=== PATIENT | female | born 1990 | race Caucasian/White ===

== ENCOUNTER 2021-05-14 07:17 | Emergency (ER) | payer OTHER ==
--- OUTSIDE RECORDS SUMMARY | 2021-05-14 07:22 | XMS REPORT | Continuity of Care Document ---
:1990 Author Organization [facility] t Address [address] [place] [address] Care Team Providers Name Role Phone Chan Attending Clinician Unavailable MALINA GARCIA Attending Clinician Unavailable Diane_Randall Attending Clinician Unavailable Meenu Miranda Attending Clinician Unavailable ELBA Attending Clinician Unavailable Duncan_Mil Attending Clinician Unavailable Cipriano_Brant Attending Clinician Unavailable MALINA GARCIA Admitting Clinician Unavailable Diane_Papboy Admitting Clinician Unavailable Physician, Primary or Family Admitting Clinician Unavailabl e ELBA Admitting Clinician Unavailable Zunnickia_F Admitting Clinician Unavailable Cipriano_Brant Admitting Clinician Unavailable Payers Payer Name Policy Type Policy Number Effective Date Expiration Date S ource [place] [id number] [facility] [id number] [place] [id number] HEALTH PROGRAM ([place]) [place] [id number] [place]OMEN [place] 3D MODELER [id number] PROGRAM [place] [id number] [place]) Problems Condition Condition Condition Status Onset Resolution Last Treating Co mments Source Name Details Category Date Date Treatment Clinician Date Acute Acute Problem Active [facility] pelvic Pelvic 7-29 da pain Pain 00:00: Medical 00 Group Myopia Myopia Problem Active [facility] 3-02 da 00:[facility] Regular Regular Problem Active [facility] astigmatis Astigmatis 3-02 da m m 00:00: [facility] Eye Eye Problem Active [facility] disorder Disorder 3-02 da screening 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: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 Outreac h Program Gynecologi Gynecologi Problem Active 2018-03 M [facility] c c 0-21 da examinatio Examinatio 00:00: Me dical n n 00 Group Body mass Body Mass Problem Active 2018-03 [facility] index 40+ Index 40+ 0-21 da - severely - Severely 00:00: Me dical obese Obese 00 Group Severe Severe Problem Active [place] obesity Obesity 924 da 00:00: Medical 00 Group Candidiasi Candidiasi Problem Active M [facility] s of skin s of Skin 9 da 00:00: Medical 00 Group Pain in Pain in Problem Active [place] pelvis Pelvis 9 da 00:00: Medical 00 Group Menorrhagi Menorrhagi Problem Active M [facility] a a 9-23 da 00:00: Medical 00 Group 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 Major 00:00: [facility] depression Depression 00 al Health Outreac h Program Hydrosalpi Hydrosalpi Problem Active 2017-03 M [facility] nx nx 0-22 da 00:00: Medical 00 Group Cyst of Cyst of Problem Active 2017-03 [place] right Right 0-08 da ovary Ovary 00:00: Medical 00 Group Intra-abdo Intra-abdo Problem Active M [facility] leigh and leigh and 8-23 da pelvic Pelvic 00:00: [facility] swelling, Swelling, 00 al mass and Mass and Health lump Lump Outreac h Program Pelvic Pelvic Problem Active [place] congestion Congestion 8-14 da syndrome Syndrome 00:00: [facility] p 00 al [facility]re[facility] Dysmenorrh Dysmenorrh Problem Active M [facility] ea ea 8-12 da 00:00: [facility] Generalize Generalize Problem Active [facility] d anxiety d Anxiety da disorder Disorder [facility] Dysthymia Dysthymia Problem Active [facility] Allergies, Adverse Reactions, Alerts Allergy Allergy Status Severity Reaction(s) Onset Inactive Treating Comm ents Source Name Type Date Date Clinician No Known DA Active U 2012-03 MARC Sandhu 03-31 Joseph lopez 00:00: d 00 [facility] Cipro Allergy Active Other [place] to da substan Medical e Group Ciproflo Allergy Active [place] xacin to da substanc [facility] NO KNOWN Allergy Active [facility] Social History Smoking Status Start Date Stop Date Source Former Smoker [facility] Medications Ordered Filled Start Stop Current Ordering Indication Dosage Frequency Signature Comments Components Source Medication Medication Date Date Medication? Clinician (SIG) Name Name Bernice Queen No Bernice [place] 0.25 mg-35 0.25 mg-35 0.25 mg-35 da mcg tablet mcg tablet mcg tablet Medical TAKE 1 TAKE 1 TAKE 1 Group TABLET TABLET TABLET EVERY DAY EVERY DAY EVERY DAY BY ORAL BY ORAL BY ORAL ROUTE. ROUTE. ROUTE. Vienva 0.1 Vienva 0.1 No Vienva 0.1 [facility] mg-20 mcg mg-20 mcg mg-20 mcg da tablet TAKE tablet TAKE tablet Medical 1 TABLET 1 TABLET TAKE 1 Group EVERY DAY EVERY DAY TABLET BY ORAL BY ORAL EVERY DAY ROUTE. ROUTE. BY ORAL ROUTE. Ambien 10 Ambien 10 No Ambien 10 [facility] mg tablet mg tablet mg tablet da Take 1 Take 1 Take 1 [facility] tablet(s) tablet(s) tablet(s) al every day every day every day Health by oral by oral by oral Outrea c route at route at route at h bedtime for bedtime for bedtime Program 21 days. 21 days. for 21 days. buspirone buspirone No 1 BID buspirone [place] 7.5 mg 7.5 mg 7.5 mg da tablet Take tablet Take tablet [facility] 1 tablet 1 tablet Take 1 al twice a day twice a day tablet Health by oral by oral twice a Outrea c route for route for day by h 30 days. 30 days. oral route P rogram for 30 days. cetirizine cetirizine No cetirizine [place] 10 mg 10 mg 10 mg da tablet TAKE tablet TAKE tablet [facility] ONE (1) ONE (1) TAKE ONE al TABLET(S) TABLET(S) (1) Healt h BY MOUTH BY MOUTH TABLET(S) Ou treac ONCE A DAY ONCE A DAY BY MOUTH h NEEDED NEEDED ONCE A DAY Program FOR FOR NEEDED ALLERGIES. ALLERGIES. FOR ALLERGIES. escitalopra escitalopra No escitalopr [place] m 20 mg m 20 mg am 20 mg da tablet TAKE tablet TAKE tablet [facility] ONE (1) ONE (1) TAKE ONE al TABLET(S) TABLET(S) (1) Healt h BY MOUTH BY MOUTH TABLET(S) Ou treac ONCE A DAY ONCE A DAY BY MOUTH h WITH MEALS. WITH MEALS. ONCE A DAY Program WITH MEALS. esomeprazol esomeprazol No esomeprazo [place] e magnesium e magnesium le d a 40 mg 40 mg magnesium [facility] capsule,del capsule,del 40 mg al ayed ayed capsule,de Health release release layed Outreac TAKE ONE TAKE ONE release h (1) (1) TAKE ONE Program CAPSULE(S) CAPSULE(S) (1) BY MOUTH BY MOUTH CAPSULE(S) EVERY DAY. EVERY DAY. BY MOUTH EVERY DAY. FreeStyle FreeStyle No FreeStyle [place] Lancets 28 Lancets 28 Lancets 28 da gauge gauge gauge [facility] FreeStyle FreeStyle No FreeStyle [place] Lite Meter Lite Meter Lite Meter da kit kit kit [facility] FreeStyle FreeStyle No FreeStyle [place] Lite Strips Lite Strips Lite d a Strips [facility] Outreac h Program levofloxaci levofloxaci No levofloxac [place] n 500 mg n 500 mg in 500 mg da tablet TAKE tablet TAKE tablet [facility] ONE (1) ONE (1) TAKE ONE al TABLET(S) TABLET(S) (1) Healt h BY MOUTH BY MOUTH TABLET(S) Ou treac ONCE A DAY. ONCE A DAY. BY MOUTH h ONCE A Program DAY. metformin metformin No metformin [place] 500 mg 500 mg 500 mg da tablet tablet tablet [facility] metronidazo metronidazo No metronidaz [place] le 500 mg le 500 mg ole 500 mg da tablet TAKE tablet TAKE tablet [facility] ONE (1) ONE (1) TAKE ONE al TABLET(S) TABLET(S) (1) Healt h BY MOUTH BY MOUTH TABLET(S) Ou treac EVERY EIGHT EVERY EIGHT BY MOUTH h HOURS. HOURS. EVERY Program EIGHT HOURS. naproxen naproxen No naproxen [facility] 500 mg 500 mg 500 mg da tablet TAKE tablet TAKE tablet [facility] ONE (1) ONE (1) TAKE ONE al TABLET BY TABLET BY (1) TABLET Health MOUTH TWICE MOUTH TWICE BY MOUTH Outreac A DAY A DAY TWICE A h NEEDED NEEDED DAY Program UNTIL WELL. UNTIL WELL. NEEDED UNTIL WELL. ondansetron ondansetron No ondansetro [place] HCl 4 mg HCl 4 mg n HCl 4 mg d a tablet TAKE tablet TAKE tablet [facility] ONE (1) ONE (1) TAKE ONE al TABLET(S) TABLET(S) (1) Healt h BY MOUTH BY MOUTH TABLET(S) Ou treac THREE TIMES THREE TIMES BY MOUTH h A DAY A DAY THREE Progra m NEEDED FOR NEEDED FOR TIMES A NAUSEA. NAUSEA. DAY NEEDED FOR NAUSEA. pantoprazol pantoprazol No pantoprazo [place] e 40 mg e 40 mg le 40 mg da tablet,verito tablet,verito tablet,del [facility] yed release yed release ayed a l TAKE ONE TAKE ONE release Heal th () (1) TAKE ONE Outreac TABLET(S) TABLET(S) (1) h BY MOUTH BY MOUTH TABLET(S) Pr ogram TWICE A DAY TWICE A DAY BY MOUTH FOR FOR TWICE A EPIGASTRIC EPIGASTRIC DAY FOR PAIN. PAIN. EPIGASTRIC PAIN. sulfamethox sulfamethox No sulfametho [place] azole 800 azole 800 xazole 800 da mg-trimetho mg-trimetho mg-trimeth [facility] prim 160 mg prim 160 mg oprim 160 al tablet TAKE tablet TAKE mg tablet Health ONE (1) ONE (1) TAKE ONE Outre ac TABLET(S) TABLET(S) (1) h BY MOUTH BY MOUTH TABLET(S) Pr ogram TWICE A DAY TWICE A DAY BY MOUTH FOR FOR TWICE A INFECTION. INFECTION. DAY FOR INFECTION. Vital Signs Vital Name Observation Time Observation Value Comments Source HEIGHT 2020-02-04 21:22:00 160 cm WEIGHT 2020-02-04 21:22:00 155.584 kg BP Diastolic 2020-10-09 00:00:00 90 mm[Hg] [facility] Height 2020-10-09 00:00:00 63 [in_i] [facility] BMI (Body Mass 2020-10-09 00:00:00 62.5 kg/m2 [facility]) [facility] BP Systolic 2020-10-09 00:00:00 164 mm[Hg] [facility] Body Weight 2020-10-09 00:00:00 352.8 [lb_av] [facility] BP Diastolic 2020-09-19 00:00:00 87 mm[Hg] [facility] Height 2020-09-19 00:00:00 63 [in_i] [facility] BMI (Body Mass 2020-09-19 00:00:00 63 kg/m2 [facility]) [facility] BP Systolic 2020-09-19 00:00:00 139 mm[Hg] [facility] Body Weight 2020-09-19 00:00:00 355.8 [lb_av] [facility] Height 2020-05-13 00:00:00 63 [in_i] [facility] BMI (Body Mass 2020-05-13 00:00:00 61.3 kg/m2 [facility] Index) [facility] Body Weight 2020-05-13 00:00:00 346 [lb_av] [facility] BP Diastolic 2020-02-21 00:00:00 88 mm[Hg] [facility] Height 2020-02-21 00:00:00 63 [in_i] [facility] BMI (Body Mass 2020-02-21 00:00:00 62 kg/m2 [facility] BP Systolic 2020-02-21 00:00:00 135 mm[Hg] [facility] Body Weight 2020-02-21 00:00:00 5602 [oz_av] [facility] HEIGHT 2020-02-04 21:22:00 160 cm WEIGHT 2020-02-04 21:22:00 155.584 kg BP Diastolic 2019-08-29 00:00:00 92 mm[Hg] [facility] Height 2019-08-29 00:00:00 63 [in_i] [facility] BMI (Body Mass 2019-08-29 00:00:00 62.2 kg/m2 [facility] Medical Index) Group BP Systolic 2019-08-29 00:00:00 135 mm[Hg] [facility] Body Weight 2019-08-29 00:00:00 5619.2 [oz_av] [facility] BP Diastolic 2019-01-01 00:00:00 65 mm[Hg] [facility] Height 2019-01-01 00:00:00 63 [in_i] [facility] BMI (Body Mass 2019-01-01 00:00:00 61.8 kg/m2 [facility] Medical Index) Group BP Systolic 2019-01-01 00:00:00 115 mm[Hg] [facility] Body Weight 2019-01-01 00:00:00 348.9 [lb_av] [facility] BP Diastolic 2018-12-04 00:00:00 93 mm[Hg] [facility] Height 2018-12-04 00:00:00 63 [in_i] [facility] BMI (Body Mass 2018-12-04 00:00:00 60.6 kg/m[facility] BP Systolic 2018-12-04 00:00:00 126 mm[Hg] [facility] Body Weight 2018-12-04 00:00:00 342.2 [lb_av] [facility] BP Diastolic 2018-11-14 00:00:00 82 mm[Hg] [facility] Height 2018-11-14 00:00:00 63 [in_i] [facility] BMI (Body Mass 2018-11-14 00:00:00 61.6 kg/m2 [facility] gut snatcher Medical Index) Group BP Systolic 2018-11-14 00:00:00 140 mm[Hg] [facility] Body Weight 2018-11-14 00:00:00 5568 [oz_av] [facility] BP Diastolic 2018-10-19 00:00:00 82 mm[Hg] [facility] Height 2018-10-19 00:00:00 63 [in_i] [facility] BMI (Body Mass 2018-10-19 00:00:00 61.3 kg/m2 [facility]) [facility] BP Systolic 2018-10-19 00:00:00 120 mm[Hg] [facility] Body Weight 2018-10-19 00:00:00 5536 [oz_av] [facility] BP Diastolic 2018-08-21 00:00:00 89 mm[Hg] [facility] Height 2018-08-21 00:00:00 63 [in_i] [facility] BMI (Body Mass 2018-08-21 00:00:00 62.4 kg/m2 [facility] BP Systolic 2018-08-21 00:00:00 133 mm[Hg] [facility] Body Weight 2018-08-21 00:00:00 5637 [oz_av] [facility] Height 2018-07-29 00:00:00 62 [in_i] [facility] BMI (Body Mass 2018-07-29 00:00:00 63.3 kg/m2 [facility] Index) [facility] Body Weight 2018-07-29 00:00:00 346 [lb_av] [facility] BP Diastolic 2018-07-24 00:00:00 104 mm[Hg] [facility] Height 2018-07-24 00:00:00 63 [in_i] [facility] BMI (Body Mass 2018-07-24 00:00:00 62.6 kg/m2 [facility] BP Systolic 2018-07-24 00:00:00 153 mm[Hg] [facility] Body Weight 2018-07-24 00:00:00 5652 [oz_av] [facility] BP Diastolic 2018-07-12 00:00:00 86 mm[Hg] [facility] Height 2018-07-12 00:00:00 63 [in_i] [facility] BMI (Body Mass 2018-07-12 00:00:00 61.6 kg/m2 [facility] Index) [facility] BP Systolic 2018-07-12 00:00:00 132 mm[Hg] [facility] Body Weight 2018-07-12 00:00:00 5568 [oz_av] [facility] Procedures Procedure Date / Time Performing Source Performed Clinician US, transvaginal 2020-10-09 [facility] 00:00:00 [facility] Group Esophagogastroduodenoscopy 2020-02-18 [facility] 00:00:[facility] Group unlisted imaging order 2019-08-29 [facility] 00:00:00 Medical Group US, transvaginal 2018-12-04 [facility] 00:00:00 Medical Group MRI, lumbar spine, w/o contrast 2018-10-19 [facility] 00:00:00 Medical Group Left Salpingectomy 2017-12-21 [facility] 00:00:00 Medical Group Cholecystectomy 2011-07-27 [facility] 00:00:00 [facility] Cholecystectomy 2011-03-14 [facility] 00:00:00 Medical Group Fallopian T[facility] Endoscopic Retrograde [facility] Encounters Start End Encounter Admission Attending Care Care Encounter Source Date/Time Date/Time Type Type Clinicians Facility Department ID 2021-04-10 [facility] [id number] [facility] 2021-04-09 [facility] [id number] 08:38[facility]02 [facility] 2020-12-19 Inpatient SHANNEN SOTO [facility] [id number] [facility] 17:40:50 2021-05-12 2021-05-12 ambulatory [facility] [id number] [facility] 2021-04-16 2021-04-16 ambulatory [facility] [id number] [facility] 2021-04-09 2021-04-09 ambulatory [facility]ML[facility] [id number] [facility] 2021-04-07 2021-04-07 Outpatient G_Pappas [facility] MMG [id number] [facility] 12[facility]36:00 12:36:00 0125 [facility] 2021-02-05 2021-02-05 Emergency EM Ruth HCAKW CERS [id number] [facility] 09:02:00 09:44:00 Jadon [id number] [facility] 2021-02-05 2021-02-05 Emergency EM JOSE LUIS Miranda HCAKW [id number] [facility] 09:02:00 09:44:00 Jadon Conner [facility] 2020-11-03 2020-11-03 Outpatient G_Pappas MMG MMG [id number] [place] 02:11:00 02:11:00 0823 Medical Group 2020-10-09 2020-10-09 Outpatient G_Pappas MMG MMG [id number] [place] 09:32:00 09:32:00 0729 [facility] 2020-10-09 2020-10-09 Outpatient G_Pappas MMG MMG [id number] [place] 09:32:00 09:32:00 0821 Medical Group 2020-10-09 2020-10-09 Finn [facility] [place] - [id number] M at[facility] 00:00:00 00:00:00 Discovery dianna Pereira MD: [address] [place] [phone] , Ph. [phone] 2020-09-19 2020-09-19 Outpatient G_Pappas MMG MMG [id number] [place] 09:42:00 09:42:00 0709 Medical Group 2020-09-19 2020-09-19 Finn [facility] [place] - [id number] [facility] 00:00:00 00:00:00 Discovery dianna Pereira MD: [address] [place] [address] , Ph. [phone] 2020-09-17 2020-09-17 Outpatient G_Pappas MMG [facility] [id number] [place] 01:23:00 01:23:00 0707 [facility] 2020-08-25 2020-08-25 Outpatient G_Pappas MMG [id number] [place] 02:05:00 02:05:00 0614 [facility] 2020-08-12 2020-08-12 Outpatient LISTER_MELI MEFORMERLY [facility] [id number] [place] 01:03:00 01:03:00 S[facility]01 [facility] 2020-07-17 2020-07-17 Outpatient G_Pappas MMG [facility] [id number] [place] 06:05:00 06:05:00 0606 [facility] 2020-07-08 2020-07-08 Outpatient TUSHAR_JUANITOI [facility] [id number] [place] 01:03:00 01:03:00 SSA 0427 [facility] 2020-06-20 2020-06-20 Outpatient G_Pappas MMG [facility] [id number] [place] 01:04:00 01:04:00 0409 [facility] 2020-06-05 2020-06-05 Outpatient G_Pappas MMG [facility] [id number] [place] 10:13:00 10:13:00 0325 [facility] 2020-05-16 2020-05-16 Outpatient Zuniga_F MMG [facility] [id number] [place] 01:10:00 01:10:00 0305 [facility] 2020-05-14 2020-05-14 Outpatient Zuniga_F MMG MMG [id number] [place] 09:15:00 09:15:00 0303 [facility] 2020-05-13 2020-05-13 Outpatient LISTER_MELI MEHOP [facility] [id number] [place] 05:08:00 05:08:00 SSA 0302 [facility] 2020-05-13 2020-05-13 Megan [facility] [place] - [id number] [facility] 00:00:00 00:00:00 Froy Padilla MD: [address], [facility] [place], [place] [facility] [address] [facility] , Ph. h ([phone]) Program 2020-05-12 2020-05-12 Outpatient [facility] [id number] [place] 12:56:00 12:56:00 SSA 0301 [facility] 2020-04-11 2020-04-11 Outpatient Zuniga_F MMG MMG [id number] [place] 01:03:00 01:03:00 0129 [facility] 2020-03-19 2020-03-19 Outpatient Zuniga_F MMG MMG [id number] [place] 05:57:00 05:57:00 0106 [facility] 2020-03-07 2020-03-07 Outpatient Zuniga_F MMG MMG [id number] [place] 01:01:00 01:01:00 1225 [facility] 2020-02-25 2020-02-25 Outpatient Zuniga_F MMG MMG [id number] [place] 06:23:00 06:23:00 1214 [facility] 2020-02-21 2020-02-21 Outpatient Zuniga_F MMG MMG [id number] [place] 05:38:00 05:38:00 1210 [facility] 2020-02-21 2020-02-21 Outpatient Zuniga_F MMG MMG [id number] [place] 05:38:00 05:38:00 1211 [facility] 2020-02-21 2020-02-21 Mario MMG [place] - [id number] [place] 00:00:00 00:00:00 Reshma Cordova MD: [address] [place] [address] [address], [place] [address] , Ph. 2020-02-20 2020-02-20 Outpatient Zuniga_F MMG MMG [id number] [place] 05:37:00 05:37:00 1209 [facility] 2020-02-19 2020-02-19 Outpatient Zuniga_F MMG MMG [id number] [place] 12:15:00 12:15:00 1208 Medical Group 2020-02-05 2020-02-05 Outpatient Zuniga_F MMG MMG [id number] [place] 01:03:00 01:03:00 1124 [facility] 2020-02-05 2020-02-05 Outpatient Zuniga_F MMG MMG [id number] [place] 01:03:00 01:03:00 1203 [facility] 2020-02-01 2020-02-01 Outpatient Zuniga_F MMG MMG [id number] [place] 04:17:00 04:17:00 1120 [facility] 2020-01-30 2020-01-30 Outpatient V_Landis MMG MMG [id number] [place] 02:27:00 02:27:00 1118 [facility] 2020-01-30 2020-01-30 Outpatient V_Landis MMG MMG [id number] [place] 02:27:00 02:27:00 1119 [facility] 2020-01-29 2020-01-29 Outpatient V_Landis MMG MMG [id number] [place] 02:28:00 02:28:00 1117 [facility] 2019-09-01 2019-09-01 Outpatient V_Landis MMG MMG [id number] [place] 02:47:00 02:47:00 0620 [facility] 2019-08-29 2019-08-29 Outpatient V_Landis MMG MMG [id number] [place] 09:51:00 09:51:00 0617 [facility] 2019-08-29 2019-08-29 Kaylyn MMG [place] - [id number] [facility] 00:00:00 00:00:00 Abeba Dc [facility] [employer] REP: [address] [facility] [address], [place] [address] , Ph. 2019-08-28 2019-08-28 Outpatient V_Landis MMG MMG [id number] [place] 09:18:00 09:18:00 0616 da Medical Group 2019-08-01 2019-08-01 Outpatient TUSHAR_KAI WAHOP [facility] 896 [place] 05:11:00 05:11:00 SSA 0113 [facility] 2019-08-01 2019-08-01 Outpatient LISTER_MELI MEHOP [facility] [id number] [place] 05:11:00 05:11:00 SSA 0520 [facility] 2019-01-01 2019-01-01 Gypsy Sanders MM [place] - [id number] [place] 00:00:00 00:00:00 [facility] [address] [place] [address] [address] [address] , Ph. [phone] 2018-12-04 2018-12-04 Gypsy Sanders MM [place] - [id number] [place] 00:00:00 00:00:00 Discovery dianna Guo NP: [address] [place] [phone] , Ph. [phone] 2018-11-17 2018-11-[address] [facility] [place] - [id number] [place] 00:00:00 00:00:00 MD Marino: Froy donato [address] Y[facility] [address] [facility] [address] [address] , Ph. 2018-11-14 2018-11-14 Mario [place] - [id number] [facility] 00:00:00 00:00:00 Reshma Cordova MD: [address] [place] [phone] , Ph. 2018-10-19 2018-10-19 Mario [place] - [id number] [place] 00:00:00 00:00:00 Reshma Cordova MD: [address] [place] [address] [address], [place] [address] , Ph. 2018-10-06 2018-10-06 Justin [place] - [id number] [place] 00:00:00 00:00:00 MD Marino: Froy donato [address] [facility] 59 [facility] - [facility], [facility] [address] [place] [facility] [address] , Ph. 2018-09-15 2018-09-15 Justin [place] - [id number] [place] 00:00:00 00:00:00 MD aMrino: Froy donato [id number] [facility] [address] [facility], [facility] [address], [facility] [place] Program [address] , Ph. 2018-08-21 2018-08-21 Mario [facility] [place] - [id number] [place] 00:00:00 00:00:00 Elias Cramer, Medical Medical MD: [address] [place] [address] [address], [place] [address] , Ph. 2018-08-14 2018-08-14 Jordan [place] - [id number] [facility] 00:00:00 00:00:00 [place] PSYD: [address], [place] [facility] [place] [address] Progr am , Ph. [phone] 2018-08-01 2018-08-01 Jordan [place] - [id number] [facility] 00:00:00 00:00:00 [place] PSYD: [address] [facility] sc[facility] [address], [place] [facility] [place] [address] Progr am , Ph. [phone] 2018-07-29 2018-07-29 Justin [place] - [id number] [place] 00:00:00 00:00:00 MD Marino: Froy donato 1700 Yars[address] Episco p [facility] - [facility] [address], [address], Behavioral He alth [facility] [address] Progr am , Ph. [phone] 2018-07-24 Mario MMG [place] - [id number] [place] 00:00:00 00:00:00 Elias Cramer Medical Medical MD: [address] [facility], [facility] [address], [place] [address] , Ph. 2018-07-12 2018-07-12 Mario [facility] [place] - [id number] [place] 00:00:00 00:00:00 Elias Cramer Medical Medical MD: [address] [facility] [address], [place] [address] , Ph. Results Test Description Test Time Test Comments Results Result Comments Source - XR KNEE 3 V RT 2021-02-05 09:27:00 [facility] 1990 Sex: F FAX: Jadon Miranda MD [place]: [facility]: REG Name: DEWAYNE CASH FSED : 1990 Age/S: 30/F [address] [facility] Unit #: [id number] Loc: [place] [place] [address] Phys: Jadon Miranda MD Acct: [id number] Dis Date: Status: REG ER PHONE #: Exam Date: 02/05/2021924 FAX #: Reason: twisted knee 3 days ago. Anteromedial pain, EXAMS: CPT CODE: [id number] XR KNEE 3 V RT 47378 EXAMINATION: - XR KNEE 3 V RT. LOCATION: H42. HISTORY: Twisted knee 3 days ago. Anteromedial pain. COMPARISON: None. FINDINGS/ IMPRESSION: Three views of RIGHT knee demonstrates no suprapatellar joint effusion. No radiographic evidence of acute osseous abnormality. Articular spaces are well-maintained. at 0927 Reported and signed by: Ashwini Capone MD CC: Jadon Miranda MD Technologist: PABLO HANEY Trnscrd Date/Time/By: 02/05/2021 (926) : By: ManeANS4 PAGE 1 Signed Report FAX: Jaodn Miranda MD [place]: [facility] St: REG Name: DEWAYNE CASH FSED : 1990 Age/S: /F [address] [facility] Unit #: [id number] Loc: [place] [address] Phys: Jadon Miranda MD Acct: [id number] Dis Date: Status: REG ER PHONE #: Exam Date: 02/05/2021924 FAX #: Reason: twisted knee 3 days ago. Anteromedial pain, EXAMS: CPT CODE: [id number] XR KNEE 3 V RT 94826 <Continued> Orig Print D/T: S: 02/05/2021 (1104) PAGE 2 Signed Report pap, LB + HR HPV 2020-09-20 00:00:00 Test Item Value Reference Range Interpretation Comme nts TP highrisk HPV,16/18 (test code = TP highrisk HPV,16/18) normal HPV (test code = HPV) normal [facility] by [id number] 12:46:00 Test Item Value Reference Range Interpretation Comments Bacteria identified in scant skin [place] Urine by Culture (test present. pathogen not code = 630-4) present at 2 days. [facility] [id number] 09:05:00 Test Item Value Reference Range Interpretation Comments Test (test code = negative Test) [facility], [id number] 09:05:00 Test Item Value Reference Range Interpretation Comments Test (test code = negative Test) [facility] macro (dipstick) panel - [id number] 09:04:00 Test Item Value Reference Range Interpretation Comments Leukocytes (test code = Trace Leukocytes) Nitrite (test code = negative Nitrite) Urobilinogen (test code = .2 Urobilinogen) Protein (test code = 100 Protein) pH (test code = pH) 6.0 Blood (test code = Blood) Non-Hemolyzed: Trace Specific [place] (test 1.030 code = Specific [place]) Ketone (test code = Negative Ketone) Bilirubin (test code = Negative Bilirubin) Glucose (test code = Negative Glucose) Appearance (test code = Clear Appearance) Color (test code = Color) Yellow [facility] macro (dipstick) panel - [id number] 09:04:00 Test Item Value Reference Range Interpretation Comments Leukocytes (test code = Trace Leukocytes) Nitrite (test code = negative Nitrite) Urobilinogen (test code = .2 Urobilinogen) Protein (test code = 100 Protein) pH (test code = pH) 6.0 Blood (test code = Blood) Non-Hemolyzed: Trace Specific [place] (test 1.030 code = Specific [place]) Ketone (test code = Negative Ketone) Bilirubin (test code = Negative Bilirubin) Glucose (test code = Negative Glucose) Appearance (test code = Clear Appearance) Color (test code = Color) Yellow [facility] [id number] 11:54:00 Test Item Value Reference Range Interpretation Comments POC-GLUCOSE METER 160 mg/dL 70-110 H : TESTED A T [facility] [address] (BEAKER) (test code [address], = 1538) [place] [address]: Sales Property Manager/Techni arie ID = [id number] for Hawa Lugo POCT-GLUCOSE [id number] 06:42:00 Test Item Value Reference Range Interpretation Comments POC-GLUCOSE METER 139 mg/dL 70-110 H : TESTED A T [facility] [address] (BEAKER) (test code [address], = 1538) [place] [address] 478: Sales Property Manager/Techni arie ID = [id number] for Kacy John COMPREHENSIVE METABOLIC [id number] 05:46:00 Test Item Value Reference Range Interpretation Comments TOTAL PROTEIN 6.8 gm/dL 6.0-8.5 (BEAKER) (test code = 770) ALBUMIN (BEAKER) 3.6 g/dL 3.5-5.0 (test code = 1145) ALKALINE PHOSPHATASE 163 U/L 30-115 H (BEAKER) (test code = 346) BILIRUBIN TOTAL 3.0 mg/dL 0.1-1.2 H (BEAKER) (test code = 377) SODIUM (BEAKER) (test 138 meq/L 135-148 code = 381) POTASSIUM (BEAKER) 3.8 meq/L 3.6-5.5 (test code = 379) CHLORIDE (BEAKER) 105 meq/L 98-106 (test code = 382) CO2 (BEAKER) (test 23 meq/L 20-29 code = 355) BLOOD UREA NITROGEN 4 mg/dL 10-26 L (BEAKER) (test code = 354) CREATININE (BEAKER) 0.71 mg/dL 0.50-1.20 (test code = 358) GLUCOSE RANDOM 137 mg/dL 70-110 H (BEAKER) (test code = 652) CALCIUM (BEAKER) 8.8 mg/dL 8.5-10.5 (test code = 697) AST (SGOT) (BEAKER) 173 U/L 5-40 H (test code = 353) ALT (SGPT) (BEAKER) 315 U/L 5-50 H (test code = 347) EGFR (BEAKER) (test 97 mL/min/1.73 ESTIMA AYAH GFR IS code = 1092) sq m NOT ACCURATE CREATININE CLEARANCE IN PREDICTING GLOMERULAR FILTRATION RATE . ESTIMATED GFR I S NOT APPLICABLE FOR DIALYSIS PATIEN TS. Sales Property Manager ID - ADMINOperator ID - ADMINOperator ID - ADMINOperator ID - ADMINOperator ID - ADMINOperator ID - ADMINOperator ID - ADMINOperator ID - ADMINOperator ID - ADMINOperator ID - ADMINOperator ID- ADMINOperator ID - ADMINOperator ID - ADMINOperator ID - ADMINOperator ID - ADMINOperator ID - ADMI NOperator ID - ADMINOperator ID - ADMINOperator ID - ADMINSpecimen slightly ictericCBC W/PLT COUNT & AUTO [id number] 05:10:00 Test Item Value Reference Range Interpretation Comments WHITE BLOOD CELL COUNT (BEAKER) 8.1 K/ L 4.0-10.0 (test code = 775) RED BLOOD CELL COUNT (BEAKER) 4.30 M/ L 4.00-5.00 (test code = 761) HEMOGLOBIN (BEAKER) (test code = 12.4 GM/DL 12.0-15.5 410) HEMATOCRIT (BEAKER) (test code = 38.5 % 36.0-46.0 411) MEAN CORPUSCULAR VOLUME (BEAKER) 89.5 fL 82.0-99.0 (test code = 753) MEAN CORPUSCULAR HEMOGLOBIN 28.8 pg 27.0-33.0 (BEAKER) (test code = 751) MEAN CORPUSCULAR HEMOGLOBIN CONC 32.2 GM/DL 32.0-36.0 (BEAKER) (test code = 752) RED CELL DISTRIBUTION WIDTH 13.0 % 12.0-15.0 (BEAKER) (test code = 412) PLATELET COUNT (BEAKER) (test 340 K/CU MM 150-430 code = 756) MEAN PLATELET VOLUME (BEAKER) 9.2 fL 6.0-11.5 (test code = 754) NUCLEATED RED BLOOD CELLS 0 /100 WBC 0-0 (BEAKER) (test code = 413) NEUTROPHILS RELATIVE PERCENT 69 % (BEAKER) (test code = 429) LYMPHOCYTES RELATIVE PERCENT 24 % (BEAKER) (test code = 430) MONOCYTES RELATIVE PERCENT 5 % (BEAKER) (test code = 431) EOSINOPHILS RELATIVE PERCENT 1 % (BEAKER) (test code = 432) BASOPHILS RELATIVE PERCENT 0 % (BEAKER) (test code = 437) NEUTROPHILS ABSOLUTE COUNT 5.53 K/ L 1.80-8.00 (BEAKER) (test code = 670) LYMPHOCYTES ABSOLUTE COUNT 1.96 K/ L 1.48-4.50 (BEAKER) (test code = 414) MONOCYTES ABSOLUTE COUNT (BEAKER) 0.38 K/ L 0.00-1.30 (test code = 415) EOSINOPHILS ABSOLUTE COUNT 0.11 K/ L 0.00-0.50 (BEAKER) (test code = 416) BASOPHILS ABSOLUTE COUNT (BEAKER) 0.03 K/ L 0.00-0.20 (test code = 417) IMMATURE GRANULOCYTES-RELATIVE 1 % 0-0 H PERCENT (BEAKER) (test code = 2801) POCT-GLUCOSE [id number] 00:20:00 Test Item Value Reference Range Interpretation Comments POC-GLUCOSE METER 114 mg/dL 70-110 H : TESTED A T [facility] [address] (BEAKER) (test code [facility], = 1538) [place] [address]: Sales Property Manager/Techni arie ID = [id number] for Kacy John POCT-GLUCOSE [id number] 17:41:00 Test Item Value Reference Range Interpretation Comments POC-GLUCOSE METER 144 mg/dL 70-110 H : TESTED A T [address] (BEAKER) (test code [facility], = 1538) [place] [id number]: Sales Property Manager/Techni arie ID = [id number] for Chepe h Nakita POCT-GLUCOSE [id number] 13:32:00 Test Item Value Reference Range Interpretation Comments POC-GLUCOSE METER 103 mg/dL 70-110 : TESTED A T [facility] [address] (BEAKER) (test code [facility], = 1538) [place] [address]: Sales Property Manager/Techni arie ID = [id number] for Ricki todd-Talat, [place], FLUORO, NON-SPECIFIC, UP TO 1 [id number] 12:40:00OR 3 @1200 Reason for exam:->[facility]CP[facility]ASH : 1990 Sex: FFluoroscopic unit utilized for a procedure performed in the OR. No interpretation was requested. Refer to the operative report for findings. Refer to PACS for patient radiation dose information. SCREEN, [id number] 06:47:00 Test Item Value Reference Range Interpretation Comments TEST URINE (BEAKER) (test Negative code = 583) POCT-GLUCOSE [id number] 06:43:00 Test Item Value Reference Range Interpretation Comments POC-GLUCOSE METER 121 mg/dL 70-110 H : TESTED A T [facility] [address] (BEAKER) (test code [address], = 1538) [facility] 77 478: Sales Property Manager/Techni arie ID = [id number] for Shmuel bowman Kacy COMPREHENSIVE METABOLIC [id number] 04:54:00 Test Item Value Reference Range Interpretation Comments TOTAL PROTEIN 6.7 gm/dL 6.0-8.5 (BEAKER) (test code = 770) ALBUMIN (BEAKER) 3.6 g/dL 3.5-5.0 (test code = 1145) ALKALINE PHOSPHATASE 171 U/L 30-115 H (BEAKER) (test code = 346) BILIRUBIN TOTAL 3.2 mg/dL 0.1-1.2 H (BEAKER) (test code = 377) SODIUM (BEAKER) (test 141 meq/L 135-148 code = 381) POTASSIUM (BEAKER) 3.7 meq/L 3.6-5.5 (test code = 379) CHLORIDE (BEAKER) 104 meq/L 98-106 (test code = 382) CO2 (BEAKER) (test 26 meq/L 20-29 code = 355) BLOOD UREA NITROGEN 5 mg/dL 10-26 L (BEAKER) (test code = 354) CREATININE (BEAKER) 0.74 mg/dL 0.50-1.20 (test code = 358) GLUCOSE RANDOM 121 mg/dL 70-110 H (BEAKER) (test code = 652) CALCIUM (BEAKER) 8.9 mg/dL 8.5-10.5 (test code = 697) AST (SGOT) (BEAKER) 280 U/L 5-40 H (test code = 353) ALT (SGPT) (BEAKER) 408 U/L 5-50 H (test code = 347) EGFR (BEAKER) (test 92 mL/min/1.73 ESTIMA AYAH GFR IS code = 1092) sq m NOT ACCURATE CREATININE CLEARANCE IN PREDICTING GLOMERULAR FILTRATION RATE . ESTIMATED GFR I S NOT APPLICABLE FOR DIALYSIS PATIEN TS. Sales Property Manager ID - ADMINOperator ID - ADMINOperator ID - ADMINOperator ID - ADMINOperator ID - ADMINOperator ID - ADMINOperator ID - ADMINOperator ID - ADMINOperator ID - ADMINOperator ID - ADMINOperator ID- ADMINOperator ID - ADMINOperator ID - ADMINOperator ID - ADMINOperator ID - ADMINOperator ID - ADMI NOperator ID - ADMINOperator ID - ADMINOperator ID - ADMINSpecimen slightly ictericHEMOGLOBIN [id number] 04:51:00 Test Item Value Reference Range Interpretation Comments HEMOGLOBIN A1C (BEAKER) (test code = 6.5 % 4.3-6.1 H 368) Sales Property Manager ID - ADMINPROTHROMBIN [id number] 04:45:00 Test Item Value Reference Range Interpretation Comments PROTIME (BEAKER) 11.5 seconds 9.3-12.0 Final Infor mation (test code = 759) (Auto Outp ut) INR (BEAKER) (test 1.06 <=5.90 Final Inf ormation code = 370) (Auto Output) RECOMMENDED COUMADIN/WARFARIN INR THERAPY RANGESSTANDARD DOSE: 2.0 - 3.0 Includes: PROPHYLAXIS forvenous thrombosis, systemic embolization; TREATMENT for venous thrombosis and/or pulmonary embolus.HIGH RISK: Target INR is 2.5-3.5 for patients with mechanical heart valves.CBC W/PLT COUNT & AUTO DIFFERENTIAL 2020-02-06 04:33:00 Test Item Value Reference Range Interpretation Comments WHITE BLOOD CELL COUNT (BEAKER) 6.3 K/ L 4.0-10.0 (test code = 775) RED BLOOD CELL COUNT (BEAKER) 4.21 M/ L 4.00-5.00 (test code = 761) HEMOGLOBIN (BEAKER) (test code = 12.2 GM/DL 12.0-15.5 410) HEMATOCRIT (BEAKER) (test code = 36.9 % 36.0-46.0 411) MEAN CORPUSCULAR VOLUME (BEAKER) 87.6 fL 82.0-99.0 (test code = 753) MEAN CORPUSCULAR HEMOGLOBIN 29.0 pg 27.0-33.0 (BEAKER) (test code = 751) MEAN CORPUSCULAR HEMOGLOBIN CONC 33.1 GM/DL 32.0-36.0 (BEAKER) (test code = 752) RED CELL DISTRIBUTION WIDTH 13.0 % 12.0-15.0 (BEAKER) (test code = 412) PLATELET COUNT (BEAKER) (test 359 K/CU MM 150-430 code = 756) MEAN PLATELET VOLUME (BEAKER) 9.1 fL 6.0-11.5 (test code = 754) NUCLEATED RED BLOOD CELLS 0 /100 WBC 0-0 (BEAKER) (test code = 413) NEUTROPHILS RELATIVE PERCENT 64 % (BEAKER) (test code = 429) LYMPHOCYTES RELATIVE PERCENT 29 % (BEAKER) (test code = 430) MONOCYTES RELATIVE PERCENT 5 % (BEAKER) (test code = 431) EOSINOPHILS RELATIVE PERCENT 2 % (BEAKER) (test code = 432) BASOPHILS RELATIVE PERCENT 0 % (BEAKER) (test code = 437) NEUTROPHILS ABSOLUTE COUNT 3.99 K/ L 1.80-8.00 (BEAKER) (test code = 670) LYMPHOCYTES ABSOLUTE COUNT 1.79 K/ L 1.48-4.50 (BEAKER) (test code = 414) MONOCYTES ABSOLUTE COUNT (BEAKER) 0.31 K/ L 0.00-1.30 (test code = 415) EOSINOPHILS ABSOLUTE COUNT 0.11 K/ L 0.00-0.50 (BEAKER) (test code = 416) BASOPHILS ABSOLUTE COUNT (BEAKER) 0.02 K/ L 0.00-0.20 (test code = 417) IMMATURE GRANULOCYTES-RELATIVE 1 % 0-0 H PERCENT (BEAKER) (test code = 2801) POCT-GLUCOSE [id number] 21:34:00 Test Item Value Reference Range Interpretation Comments POC-GLUCOSE METER 115 mg/dL 70-110 H : TESTED A T [facility] [address] (BEAKER) (test code [address], = 1538) [place] [address]: Sales Property Manager/Techni arie ID = [id number] for Kacy John POCT-GLUCOSE [id number] 16:03:00 Test Item Value Reference Range Interpretation Comments POC-GLUCOSE METER 106 mg/dL 70-110 : TESTED A T [facility] [address] (BEAKER) (test code [address], = 1538) [place] [address]: Sales Property Manager/Techni arie ID = [id number] for Chepe Jennifer feldmannna CT, ABDOMEN, [id number] 13:41:00Unlisted Reason for Exam - Click Yes and Enter Reason Below->No [place] : 1990 Sex: FFINAL REPORT EXAM: CT ABDOMEN WITH CONTRAST CLINICAL INDICATION: Abdominal distention TECHNIQUE: CT abdomen was performed to the iliac crests, following the administration of contrast, as per department protocol. Axial, sagittal, and coronal reconstructions were obtained. IV CONTRAST: 100 cc of Isovue-300 ORAL CONTRAST: Not administered, limiting sensitivity of this exam f or evaluation of bowel, retroperitoneum, and intraabdominal fluid collections. RADIATION DOSE REDUCTION: This exam was performed according to the departmental dose-optimization program which includesautomated exposure control, adjustment of the mA and/or kV according to patient size and/or use of iterative reconstruction technique. COMPARISON: None FINDINGS: LOWER CHEST: No pathologic process in imaged portion of lower chest LIVER: Diffuse fatty infiltration. Linear metallic densities visualized on the anterior aspect of the segment 8 of the liver and lateral aspect of the segment 5/6 of the liver. These could represent surgical adelaida or another extraneous metallic density. No surgical scar is visualized. Clinical correlation is requested. There is also presence of air in the nondependent biliary passages example segments 2 and 3 and 4 of the liver. The patient seems to have an intact gallbladder and bile duct which are otherwise unremarkable. Clinical correlation is requested. The causes of air in the biliary tree or sphincterotomy, biliary enteric anastomosis, other biliary instrumentation such as ERCP, infection etc. GALLBLADDER: Please see above BILE DUCTS: Please see above PANCREAS:No pathologic process. SPLEEN: Another metallic density is seen at the posterior pole of the spleen. Clinical correlation is requested. ADRENALS:No pathologic process. KIDNEYS: Kidneys are only partially visualized. The visualized portions are unremarkable. GASTROINTESTINAL TRACT:No pathologic process.LYMPH NODES:No lymphadenopathy. PERITONEUM/MESENTERY:No free air, significant free fluid, mass or fluid collection. VESSELS:No vascular abnormality. ADDITIONAL RETROPERITONEAL FINDINGS:None. ABDOMINAL WALL:Tiny fat- containing umbilical hernia. MUSCULOSKELETAL:No pathologic process. ADDITIONAL FINDINGS: None. IMPRESSION: Diffuse fatty infiltration of the liver. Air in the biliary tree and nondependentsegments. Please see above. Metallic density foci around the liver and likely the spleen. Please seeabove. Standardized Report: [id number]. Signed: Abhijit Craig Verified Date/Time: 04/06/2019 13:41:03 Reading Location: [facility] Radiology Reading Room RAD, CHEST, 1 VIEW, NON [id number] 11:34:00Reason for exam:->pneumoniaShould this be performed at the bedside?->Yes [place] : 1990 Sex: FFINAL REPORT X-ray chest AP portable COMPARISON: None HISTORY: Pneumonia FINDINGS:Technical adequacy: AP portable upright with significant patient rotationLines and Tubes: Not applicableCentral airways: UnremarkableHeart: Apparent cardiomegaly likely because of positionGreat vessels: UnremarkableMediastinum: UnremarkableLungs: UnremarkablePleura: UnremarkableSkeletal structures: UnremarkableBody wall: UnremarkableUpper abdomen: Unremarkable Impression: As above. No acutecardiopulmonary disease. Signed: Abhijit Craig Verified Date/Time: 02/05/2020 11:34:02 Reading Location: [facility] Radiology Reading Room Electronically signed by: ABHIJIT CRAIG MD on02/05/2020 11:34 AMPOCT-GLUCOSE [id number] 07:58:00 Test Item Value Reference Range Interpretation Comments POC-GLUCOSE METER 141 mg/dL 70-110 H : [facility]ED [facility] T [facility] (BEAKER) (test code [address], = 1538) [facility] 77 478: Sales Property Manager/Techni arie ID = [id number] for Chepe Nakita feldamn COMPREHENSIVE METABOLIC [id number] 05:50:00 Test Item Value Reference Range Interpretation Comments TOTAL PROTEIN 6.9 gm/dL 6.0-8.5 (BEAKER) (test code = 770) ALBUMIN (BEAKER) 3.7 g/dL 3.5-5.0 (test code = 1145) ALKALINE PHOSPHATASE 156 U/L 30-115 H (BEAKER) (test code = 346) BILIRUBIN TOTAL 2.8 mg/dL 0.1-1.2 H (BEAKER) (test code = 377) SODIUM (BEAKER) (test 139 meq/L 135-148 code = 381) POTASSIUM (BEAKER) 3.7 meq/L 3.6-5.5 (test code = 379) CHLORIDE (BEAKER) 103 meq/L 98-106 (test code = 382) CO2 (BEAKER) (test 25 meq/L 20-29 code = 355) BLOOD UREA NITROGEN 7 mg/dL 10-26 L (BEAKER) (test code = 354) CREATININE (BEAKER) 0.72 mg/dL 0.50-1.20 (test code = 358) GLUCOSE RANDOM 146 mg/dL 70-110 H (BEAKER) (test code = 652) CALCIUM (BEAKER) 9.0 mg/dL 8.5-10.5 (test code = 697) AST (SGOT) (BEAKER) 515 U/L 5-40 H (test code = 353) ALT (SGPT) (BEAKER) 418 U/L 5-50 H (test code = 347) EGFR (BEAKER) (test 95 mL/min/1.73 ESTIMA AYAH GFR IS code = 1092) sq m NOT ACCURATE CREATININE CLEARANCE IN PREDICTING GLOMERULAR FILTRATION RATE . ESTIMATED GFR I S NOT APPLICABLE FOR DIALYSIS PATIEN TS. Sales Property Manager ID - ADMINOperator ID - ADMINOperator ID - ADMINOperator ID - ADMINOperator ID - ADMINOperator ID - ADMINOperator ID - ADMINOperator ID - ADMINOperator ID - ADMINOperator ID - ADMINOperator ID- ADMINOperator ID - ADMINOperator ID - ADMINOperator ID - ADMINOperator ID - ADMINOperator ID - ADMI NSpecimen slightly [id number] 05:35:00 Test Item Value Reference Range Interpretation Comments LIPASE (BEAKER) (test code = 749) 14 U/L 6-51 Sales Property Manager ID - ADMINSpecimen slightly ictericLIPID [id number] 05:34:00 Test Item Value Reference Range Interpretation Comments TRIGLYCERIDES (BEAKER) (test code = 101 mg/dL 540) CHOLESTEROL (BEAKER) (test code = 164 mg/dL 631) HDL CHOLESTEROL (BEAKER) (test code 39 mg/dL = 976) LDL CHOLESTEROL CALCULATED (BEAKER) 105 mg/dL (test code = 633) Triglyceride Reference Range: Low Risk <150 Borderline 150-199 High Risk 200-499 Very High Risk >=500Cholesterol Reference Range: Low Risk <200 Borderline 200-239 High Risk >240HDL Cholesterol Reference Range: Low Risk >=60 High Risk <40LDL Cholesterol Reference Range: Optimal <100 Near Optimal 100-129 Borderline 130-159 High 160-189 Very High >=190 Sales Property Manager ID - ADMINOperator ID - ADMINOperator ID - ADMINSpecimen slightly [id number] 05:34:00 Test Item Value Reference Range Interpretation Comments MAGNESIUM (BEAKER) (test code = 2.0 mg/dL 1.5-3.0 627) Sales Property Manager ID - [id number] 05:26:00 Test Item Value Reference Range Interpretation Comments AMYLASE (BEAKER) (test code = 349) 37 U/L 30-110 Sales Property Manager ID - ADMINOperator ID - ADMINOperator ID - ADMINOperator ID - ADMINSpecimen slightly ictericCBC W/PLT COUNT & AUTO [id number] 05:24:00 Test Item Value Reference Range Interpretation Comments WHITE BLOOD CELL COUNT (BEAKER) 7.9 K/ L 4.0-10.0 (test code = 775) RED BLOOD CELL COUNT (BEAKER) 4.03 M/ L 4.00-5.00 (test code = 761) HEMOGLOBIN (BEAKER) (test code = 11.7 GM/DL 12.0-15.5 L 410) HEMATOCRIT (BEAKER) (test code = 35.2 % 36.0-46.0 L 411) MEAN CORPUSCULAR VOLUME (BEAKER) 87.3 fL 82.0-99.0 (test code = 753) MEAN CORPUSCULAR HEMOGLOBIN 29.0 pg 27.0-33.0 (BEAKER) (test code = 751) MEAN CORPUSCULAR HEMOGLOBIN CONC 33.2 GM/DL 32.0-36.0 (BEAKER) (test code = 752) RED CELL DISTRIBUTION WIDTH 12.8 % 12.0-15.0 (BEAKER) (test code = 412) PLATELET COUNT (BEAKER) (test 404 K/CU MM 150-430 code = 756) MEAN PLATELET VOLUME (BEAKER) 9.3 fL 6.0-11.5 (test code = 754) NUCLEATED RED BLOOD CELLS 0 /100 WBC 0-0 (BEAKER) (test code = 413) NEUTROPHILS RELATIVE PERCENT 74 % (BEAKER) (test code = 429) LYMPHOCYTES RELATIVE PERCENT 21 % (BEAKER) (test code = 430) MONOCYTES RELATIVE PERCENT 4 % (BEAKER) (test code = 431) EOSINOPHILS RELATIVE PERCENT 1 % (BEAKER) (test code = 432) BASOPHILS RELATIVE PERCENT 0 % (BEAKER) (test code = 437) NEUTROPHILS ABSOLUTE COUNT 5.83 K/ L 1.80-8.00 (BEAKER) (test code = 670) LYMPHOCYTES ABSOLUTE COUNT 1.64 K/ L 1.48-4.50 (BEAKER) (test code = 414) MONOCYTES ABSOLUTE COUNT (BEAKER) 0.31 K/ L 0.00-1.30 (test code = 415) EOSINOPHILS ABSOLUTE COUNT 0.04 K/ L 0.00-0.50 (BEAKER) (test code = 416) BASOPHILS ABSOLUTE COUNT (BEAKER) 0.01 K/ L 0.00-0.20 (test code = 417) IMMATURE GRANULOCYTES-RELATIVE 0 % 0-0 PERCENT (BEAKER) (test code = 2801) POCT-GLUCOSE [id number] 21:32:00 Test Item Value Reference Range Interpretation Comments POC-GLUCOSE METER 121 mg/dL 70-110 H : TESTED A T [facility] (BEAKER) ([facility] [address] = [facility]38[facility] 77 478: Sales Property Manager/Techni arie ID = [id number] for Margi Mcneill CBC W Auto Differential panel - [id number] 12:35:00 Test Item Value Reference Range Interpretation Comments white blood count (test code = 8.6 K/uL 4.0-11.5 white blood count) red blood count (test code = red 4.39 M/uL 3.80-5.20 blood count) hemoglobin (test code = 12.8 g/dL 10.5-15.7 hemoglobin) hematocrit (test code = 39.2 % 34.0-50.0 hematocrit) MCV [Entitic volume] (test code = 89.3 fL 86-100 08057-7) mean corpuscular hemoglobin (test 29.2 pg 26.2-33.4 code = mean corpuscular hemoglobin) mean corpuscular HGB conc (test 32.7 g/dL 30-34 code = mean corpuscular HGB conc) red cell distribution width (test 12.5 % 12.0-15.5 code = red cell distribution width) platelet count (test code = 397 K/uL 165-450 platelet count) mean platelet volume (test code = 9.0 fL 9.4-12.6 L mean platelet volume) Segmented neutrophils/100 75.3 % 44.4-80.1 leukocytes in Blood (test code = 46653-4) Immature granulocytes [#/volume] 0.0 K/uL 0.0-0.03 in Blood (test code = 44279-8) lymphocyte% (test code = 19.3 % 10.0-50.0 lymphocyte%) mono % (test code = mono %) 4.2 % 3.6-12.0 eos % (test code = eos %) 0.6 % 0.0-5.4 Basophils/100 leukocytes in 0.2 % 0.1-1.2 Unspecified specimen (test code = 51720-8) Band form neutrophils [#/volume] 6.44 K/uL 1.56-6.13 H in Blood (test code = 37982-9) Lymphocytes [#/volume] in 1.7 K/uL 1.18-3.74 Unspecified specimen by Automated count (test code = 60189-6) mono # (test code = mono #) 0.36 K/uL 0.24-0.86 eos # (test code = eos #) 0.05 K/uL 0.04-0.36 basophil # (test code = basophil 0.02 K/uL 0.01-0.08 #) NRBC% (test code = NRBC%) 0 /100 WBC 0-0.2 NRBC# (test code = NRBC#) 0 K/uL [facility] GroupDifferent[facility], method unspecified - [id number] 12:35:00NeutrophilsBandLymphocyteAtypical LymphMonocyteEosinophilBasophilMetamyelocyteMyelocyteNucleated RedBlood CellDifferential CommentPlatelet EstimatePlatelet MorphologyPolychromasiaHypochromasiaPoikilocy tosisAnisocytosisMacrocytosisSchistocytesTear Drop CellsOvalocytesToxic GranulationBurr CellsToxic VacuolationGiant PlateletsDifferential comment-P [facility]Com[facility] 2000 [facility] - Serum or Plasma 2020-02-04 12:35:00 Test Item Value Reference Range Interpretation Comments Glucose [Mass/volume] in Serum or 140 mg/dL 74-106 H Plasma (test code = 2345-7) Urea nitrogen [Mass/volume] in 9 mg/dL 6-20 Serum or Plasma (test code = 3094-0) osmolality calculated,serum (test 273 mOsm/kg 280-300 L code = osmolality calculated,serum) creatinine (test code = 0.7 mg/dL 0.50-0.90 creatinine) glomerular filtration rate (test >60.00 code = glomerular filtration rate) Urea nitrogen/Creatinine [Mass 12.9 12-20 Ratio] in Serum or Plasma (test code = 3097-3) sodium level (test code = sodium 136 mmol/L 135-145 level) potassium level (test code = 4.2 mmol/L 3.5-5.2 potassium level) chloride level (test code = 98 mmol/L 98-108 chloride level) CO2 (test code = CO2) 26 mmol/L 21-32 anion gap (test code = anion gap) 16.2 mEq/L 12-20 calcium level (test code = 9.6 mg/dL 8.6-10.0 calcium level) total protein (test code = total 7.6 g/dL 6.6-8.7 protein) albumin (test code = albumin) 4.2 g/dL 3.5-5.2 globulin (test code = globulin) 3.4 gm/dL A/G ratio (test code = A/G ratio) 1.2 >1.0 bilirubin,total (test code = 1.6 mg/dL 0.0-1.2 H bilirubin,total) AST/SGOT (test code = AST/SGOT) 445 U/L 15-32 H Alanine aminotransferase 218 U/L 0-33 H [Enzymatic activity/volume] in Serum or Plasma (test code = 1742-6) Alkaline phosphatase [Enzymatic 156 U/L 35-105 H activity/volume] in Serum or Plasma (test code = 6768-6) [facility]] in Serum or Plasma 2020-02-04 12:35:00 Test Item Value Reference Range Interpretation Comments lipase (test code = lipase) 25 U/L 13-60 [facility] complete [facility] - [id number] 03:14:00 Test Item Value Reference Range Interpretation Comments Color of Urine by Auto (test yellow code = 13812-8) Appearance of Urine (test code clear clear = 5767-9) Glucose [Presence] in Urine by negative negative Automated test strip (test code = 19245-4) Bilirubin.total [Mass/volume] negative negative in Urine (test code = 1978-6) Ketones [Mass/volume] in Urine trace negative by Automated test strip (test code = 58294-9) Specific gravity of Urine by 1.014 1.003-1.030 Automated test strip (test code = 54711-1) blood urine (test code = blood negative negative urine) pH of Urine (test code = 7.000 5-9 2756-5) protein urine (UA) (test code = trace negative protein urine (UA)) Urobilinogen [Presence] in =2.0 0.2-1.0 H Urine (test code = 16008-3) Nitrite [Presence] in Urine by negative negative Test strip (test code = 5802-4) Leukocyte esterase [Presence] =2 negative H in Urine by Automated test strip (test code = 66868-2) Erythrocytes [#/volume] in =1-5 0-5 Urine by Automated count (test code = 798-9) Leukocytes [#/area] in Urine =11-14 0-5 H sediment by Automated count (test code = 89592-8) Epithelial cells [Presence] in =6-10 0-5 Urine sediment by Light microscopy (test code = 57965-0) Bacteria identified in Urine by none detected none detect Culture (test code = 630-4) Casts [#/area] in Urine =2-5 none detect sediment by Automated count (test code = 34908-3) urine culture added? (test code yes = urine culture added?) [facility] Urine by [id number] 03:14:00Bacteria Ur CultForrest General HospitalCBC W Auto Differential panel - [id number] 03:07:00 Test Item Value Reference Range Interpretation Comments white blood count (test code = 11.7 K/uL 4.0-11.5 H white blood count) red blood count (test code = red 3.88 M/uL 3.80-5.20 blood count) hemoglobin (test code = 11.6 g/dL 10.5-15.7 hemoglobin) hematocrit (test code = 34.5 % 34.0-50.0 hematocrit) MCV [Entitic volume] (test code = 88.9 fL 86-100 32216-6) mean corpuscular hemoglobin (test 29.9 pg 26.2-33.4 code = mean corpuscular hemoglobin) mean corpuscular HGB conc (test 33.6 g/dL 30-34 code = mean corpuscular HGB conc) red cell distribution width (test 12.8 % 12.0-15.5 code = red cell distribution width) platelet count (test code = 317 K/uL 165-450 platelet count) mean platelet volume (test code = 9.2 fL 9.4-12.6 L mean platelet volume) Segmented neutrophils/100 66.6 % 44.4-80.1 leukocytes in Blood (test code = 64567-4) Immature granulocytes [#/volume] 0.1 K/uL 0.0-0.03 H in Blood (test code = 17044-7) lymphocyte% (test code = 25.6 % 10.0-50.0 lymphocyte%) mono % (test code = mono %) 5.4 % 3.6-12.0 eos % (test code = eos %) 1.8 % 0.0-5.4 Basophils/100 leukocytes in 0.1 % 0.1-1.2 Unspecified specimen (test code = 27370-1) Band form neutrophils [#/volume] 7.77 K/uL 1.56-6.13 H in Blood (test code = 25984-2) Lymphocytes [#/volume] in 3.0 K/uL 1.18-3.74 Unspecified specimen by Automated count (test code = 12373-6) mono # (test code = mono #) 0.63 K/uL 0.24-0.86 eos # (test code = eos #) 0.21 K/uL 0.04-0.36 basophil # (test code = basophil 0.01 K/uL 0.01-0.08 #) NRBC% (test code = NRBC%) 0 /100 WBC 0-0.2 NRBC# (test code = NRBC#) 0 K/uL [facility] HospitalDifferential panel, method unspecified - [id number] 03:07:00NeutrophilsLymphocyteMonocyteMetamyelocytePlatelet EstimatePlatelet MorphologyToxic VacuolationFor[facility] HospitalB[facility] 2000 [facility] - Serum or [id number] 03:07:00 Test Item Value Reference Range Interpretation Comments Glucose [Mass/volume] in Serum or 126 mg/dL 74-106 H Plasma (test code = 2345-7) Urea nitrogen [Mass/volume] in 7 mg/dL 6-20 Serum or Plasma (test code = 3094-0) osmolality calculated,serum (test 273 mOsm/kg 280-300 L code = osmolality calculated,serum) creatinine (test code = 0.6 mg/dL 0.50-0.90 creatinine) glomerular filtration rate (test >60.00 code = glomerular filtration rate) Urea nitrogen/Creatinine [Mass 11.7 12-20 L Ratio] in Serum or Plasma (test code = 3097-3) sodium level (test code = sodium 137 mmol/L 135-145 level) potassium level (test code = 3.8 mmol/L 3.5-5.2 potassium level) chloride level (test code = 101 mmol/L 98-108 chloride level) CO2 (test code = CO2) 25 mmol/L 21-32 anion gap (test code = anion gap) 14.8 mEq/L 12-20 calcium level (test code = 9.4 mg/dL 8.6-10.0 calcium level) [facility] HospitalUrinalysis complete panel - [id number] 03:33:00 Test Item Value Reference Range Interpretation Comments Color of Urine by Auto (test colorless code = 17966-3) Appearance of Urine (test code clear clear = 5767-9) Glucose [Presence] in Urine by negative negative Automated test strip (test code = 70134-0) Bilirubin.total [Mass/volume] negative negative in Urine (test code = 1978-6) Ketones [Mass/volume] in Urine negative negative by Automated test strip (test code = 49296-3) Specific gravity of Urine by 1.007 1.003-1.030 Automated test strip (test code = 40316-3) blood urine (test code = blood =2 negative H urine) pH of Urine (test code = 6.000 5-9 2756-5) protein urine (UA) (test code = negative negative protein urine (UA)) Urobilinogen [Presence] in normal 0.2-1.0 Urine (test code = 54408-4) Nitrite [Presence] in Urine by negative negative Test strip (test code = 5802-4) Leukocyte esterase [Presence] =2 negative H in Urine by Automated test strip (test code = 72654-8) Erythrocytes [#/volume] in =6-10 0-5 H Urine by Automated count (test code = 798-9) Leukocytes [#/area] in Urine =6-10 0-5 H sediment by Automated count (test code = 28883-0) Epithelial cells [Presence] in =1-5 0-5 Urine sediment by Light microscopy (test code = 52172-0) Bacteria identified in Urine by none detected none detect Culture (test code = 630-4) Casts [#/area] in Urine none detected none detect sediment by Automated count (test code = 30081-3) urine culture added? (test code yes = urine culture added?) [facility] HospitalBacteria identified in Urine by [id number] 03:33:00 Test Item Value Reference Range Interpretation Comments Bacteria identified in no growth after 2 Urine by Culture (test days code = 630-4) [facility] W Auto Differential panel - [id number] 02:23:00 Test Item Value Reference Range Interpretation Comments white blood count (test code = 12.2 K/uL 4.0-11.5 white blood count) red blood count (test code = red 4.04 M/uL 3.80-5.20 blood count) hemoglobin (test code = 12.0 g/dL 10.5-15.7 hemoglobin) hematocrit (test code = 36.2 % 34.0-50.0 hematocrit) MCV [Entitic volume] (test code = 89.6 fL 86-100 19147-6) mean corpuscular hemoglobin (test 29.7 pg 26.2-33.4 code = mean corpuscular hemoglobin) mean corpuscular HGB conc (test 33.1 g/dL 30-34 code = mean corpuscular HGB conc) red cell distribution width (test 12.8 % 12.0-15.5 code = red cell distribution width) platelet count (test code = 312 K/uL 165-450 platelet count) mean platelet volume (test code = 9.2 fL 9.4-12.6 L mean platelet volume) Segmented neutrophils/100 66.9 % 44.4-80.1 leukocytes in Blood (test code = 49691-0) Immature granulocytes [#/volume] 0.1 K/uL 0.0-0.03 H in Blood (test code = 28703-3) lymphocyte% (test code = 25.8 % 10.0-50.0 lymphocyte%) mono % (test code = mono %) 5.2 % 3.6-12.0 eos % (test code = eos %) 1.5 % 0.0-5.4 Basophils/100 leukocytes in 0.2 % 0.1-1.2 Unspecified specimen (test code = 49506-2) Band form neutrophils [#/volume] 8.14 K/uL 1.56-6.13 H in Blood (test code = 37355-2) Lymphocytes [#/volume] in 3.1 K/uL 1.18-3.74 Unspecified specimen by Automated count (test code = 91210-9) mono # (test code = mono #) 0.63 K/uL 0.24-0.86 eos # (test code = eos #) 0.18 K/uL 0.04-0.36 basophil # (test code = basophil 0.03 K/uL 0.01-0.08 #) NRBC% (test code = NRBC%) 0 /100 WBC 0-0.2 NRBC# (test code = NRBC#) 0 K/uL [facility]Com[facility] 2000 [facility] - Serum or Plasma 2020-01-27 02:23:00 Test Item Value Reference Range Interpretation Comments Glucose [Mass/volume] in Serum or 130 mg/dL 74-106 H Plasma (test code = 2345-7) Urea nitrogen [Mass/volume] in 7 mg/dL 6-20 Serum or Plasma (test code = 3094-0) osmolality calculated,serum (test 274 mOsm/kg 280-300 L code = osmolality calculated,serum) creatinine (test code = 0.7 mg/dL 0.50-0.90 creatinine) glomerular filtration rate (test >60.00 code = glomerular filtration rate) Urea nitrogen/Creatinine [Mass 10.0 12-20 L Ratio] in Serum or Plasma (test code = 3097-3) sodium level (test code = sodium 137 mmol/L 135-145 level) potassium level (test code = 3.7 mmol/L 3.5-5.2 potassium level) chloride level (test code = 101 mmol/L 98-108 chloride level) CO2 (test code = CO2) 24 mmol/L 21-32 anion gap (test code = anion gap) 15.7 mEq/L 12-20 calcium level (test code = 9.3 mg/dL 8.6-10.0 calcium level) total protein (test code = total 7.2 g/dL 6.6-8.7 protein) albumin (test code = albumin) 3.8 g/dL 3.5-5.2 globulin (test code = globulin) 3.4 gm/dL A/G ratio (test code = A/G ratio) 1.1 >1.0 bilirubin,total (test code = 0.6 mg/dL 0.0-1.2 bilirubin,total) AST/SGOT (test code = AST/SGOT) 17 U/L 15-32 Alanine aminotransferase 23 U/L 0-33 [Enzymatic activity/volume] in Serum or Plasma (test code = 1742-6) Alkaline phosphatase [Enzymatic 109 U/L 35-105 H activity/volume] in Serum or Plasma (test code = 6768-6) [facility] HospitalLip[facility] [Enzymatic activity/volume] in Serum or Plasma 2020-01-27 02:23:00 Test Item Value Reference Range Interpretation Comments lipase (test code = lipase) 13 U/L 13-60 [facility] W Auto Differential panel - [id number] 04:06:00 Test Item Value Reference Range Interpretation Comments white blood count (test code = 15.6 K/uL 4.0-11.5 H white blood count) red blood count (test code = red 4.32 M/uL 3.80-5.20 blood count) hemoglobin (test code = 12.8 g/dL 10.5-15.7 hemoglobin) hematocrit (test code = 37.6 % 34.0-50.0 hematocrit) MCV [Entitic volume] (test code = 87.0 fL 86-100 65248-7) mean corpuscular hemoglobin (test 29.6 pg 26.2-33.4 code = mean corpuscular hemoglobin) mean corpuscular HGB conc (test 34.0 g/dL 30-34 code = mean corpuscular HGB conc) red cell distribution width (test 12.9 % 12.0-15.5 code = red cell distribution width) platelet count (test code = 351 K/uL 165-450 platelet count) mean platelet volume (test code = 8.9 fL 9.4-12.6 L mean platelet volume) Segmented neutrophils/100 74.3 % 44.4-80.1 leukocytes in Blood (test code = 81428-2) Immature granulocytes [#/volume] 0.1 K/uL 0.0-0.03 H in Blood (test code = 89497-3) lymphocyte% (test code = 18.9 % 10.0-50.0 lymphocyte%) mono % (test code = mono %) 5.6 % 3.6-12.0 eos % (test code = eos %) 0.5 % 0.0-5.4 Basophils/100 leukocytes in 0.2 % 0.1-1.2 Unspecified specimen (test code = 21195-5) Band form neutrophils [#/volume] 11.56 K/uL 1.56-6.13 H in Blood (test code = 43383-7) Lymphocytes [#/volume] in 2.9 K/uL 1.18-3.74 Unspecified specimen by Automated count (test code = 70449-3) mono # (test code = mono #) 0.87 K/uL 0.24-0.86 H eos # (test code = eos #) 0.08 K/uL 0.04-0.36 basophil # (test code = basophil 0.03 K/uL 0.01-0.08 #) NRBC% (test code = NRBC%) 0 /100 WBC 0-0.2 NRBC# (test code = NRBC#) 0 K/uL [facility]Com[facility] 2000 [facility] - Serum or Plasma 2020-01-26 04:06:00 Test Item Value Reference Range Interpretation Comments glucose (test code = glucose) 153 mg/dL 74-106 H Urea nitrogen [Mass/volume] in 7 mg/dL 6-20 Serum or Plasma (test code = 3094-0) osmolality calculated,serum (test 271 mOsm/kg 280-300 L code = osmolality calculated,serum) creatinine (test code = 0.6 mg/dL 0.50-0.90 creatinine) glomerular filtration rate (test >60.00 code = glomerular filtration rate) Urea nitrogen/Creatinine [Mass 11.7 12-20 L Ratio] in Serum or Plasma (test code = 3097-3) sodium level (test code = sodium 135 mmol/L 135-145 level) Potassium [Moles/volume] in Body 4.3 mmol/L 3.5-5.2 fluid (test code = 2821-7) chloride level (test code = 101 mmol/L 98-108 chloride level) CO2 (test code = CO2) 22 mmol/L 21-32 anion gap (test code = anion gap) 16.3 mEq/L 12-20 calcium level (test code = 9.1 mg/dL 8.6-10.0 calcium level) total protein (test code = total 7.7 g/dL 6.6-8.7 protein) albumin (test code = albumin) 4.1 g/dL 3.5-5.2 globulin (test code = globulin) 3.6 gm/dL A/G ratio (test code = A/G ratio) 1.1 >1.0 bilirubin,total (test code = 0.9 mg/dL 0.0-1.2 bilirubin,total) AST/SGOT (test code = AST/SGOT) 16 U/L 15-32 Alanine aminotransferase 23 U/L 0-33 [Enzymatic activity/volume] in Serum or Plasma (test code = 1742-6) Alkaline phosphatase [Enzymatic 92 U/L 35-105 activity/volume] in Serum or Plasma (test code = 6768-6) [facility]Ur[facility] complete [facility] - [id number] 02:30:00 Test Item Value Reference Range Interpretation Comments Color of Urine by Auto (test light yellow code = 51329-7) Appearance of Urine (test code clear clear = 5767-9) Glucose [Presence] in Urine by negative negative Automated test strip (test code = 52944-1) Bilirubin.total [Mass/volume] negative negative in Urine (test code = 1978-6) Ketones [Mass/volume] in Urine negative negative by Automated test strip (test code = 20607-0) Specific gravity of Urine by 1.007 1.003-1.030 Automated test strip (test code = 56179-4) blood urine (test code = blood negative negative urine) pH of Urine (test code = 6.000 5-9 2756-5) protein urine (UA) (test code = negative negative protein urine (UA)) Urobilinogen [Presence] in normal 0.2-1.0 Urine (test code = 60505-9) Nitrite [Presence] in Urine by negative negative Test strip (test code = 5802-4) Leukocyte esterase [Presence] =4 negative H in Urine by Automated test strip (test code = 26961-9) Erythrocytes [#/volume] in <1 0-5 Urine by Automated count (test code = 798-9) Leukocytes [#/area] in Urine =30-49 0-5 H sediment by Automated count (test code = 06145-2) Epithelial cells [Presence] in =1-5 0-5 Urine sediment by Light microscopy (test code = 37020-6) Bacteria identified in Urine by none detected none detect Culture (test code = 630-4) Casts [#/area] in Urine none detected none detect sediment by Automated count (test code = 95053-6) urine culture added? (test code yes = urine culture added?) [facility] [id number] 08:42:00 Test Item Value Reference Range Interpretation Comments Surgical pathology see separate pathology study (test code = report. 93411-2) [facility] W Auto Differential panel - [id number] 09:35:00 Test Item Value Reference Range Interpretation Comments white blood count (test code = 15.1 K/uL 4.0-11.5 H white blood count) red blood count (test code = red 4.40 M/uL 3.80-5.20 blood count) hemoglobin (test code = 13.0 g/dL 10.5-15.7 hemoglobin) hematocrit (test code = 37.6 % 34.0-50.0 hematocrit) MCV [Entitic volume] (test code = 85.5 fL 86-100 L 17898-7) mean corpuscular hemoglobin (test 29.5 pg 26.2-33.4 code = mean corpuscular hemoglobin) mean corpuscular HGB conc (test 34.6 g/dL 30-34 H code = mean corpuscular HGB conc) red cell distribution width (test 12.6 % 12.0-15.5 code = red cell distribution width) platelet count (test code = 356 K/uL 165-450 platelet count) mean platelet volume (test code = 9.0 fL 9.4-12.6 L mean platelet volume) Segmented neutrophils/100 78.7 % 44.4-80.1 leukocytes in Blood (test code = 03470-9) Immature granulocytes [#/volume] 0.1 K/uL 0.0-0.03 H in Blood (test code = 91543-8) lymphocyte% (test code = 16.3 % 10.0-50.0 lymphocyte%) mono % (test code = mono %) 4.1 % 3.6-12.0 eos % (test code = eos %) 0.3 % 0.0-5.4 Basophils/100 leukocytes in 0.1 % 0.1-1.2 Unspecified specimen (test code = 53355-8) Band form neutrophils [#/volume] 11.91 K/uL 1.56-6.13 H in Blood (test code = 69726-1) Lymphocytes [#/volume] in 2.5 K/uL 1.18-3.74 Unspecified specimen by Automated count (test code = 46649-8) mono # (test code = mono #) 0.62 K/uL 0.24-0.86 eos # (test code = eos #) 0.04 K/uL 0.04-0.36 basophil # (test code = basophil 0.02 K/uL 0.01-0.08 #) NRBC% (test code = NRBC%) 0 /100 WBC 0-0.2 NRBC# (test code = NRBC#) 0 K/uL [facility]Different[facility], method unspecified - [id number] 09:35:00NeutrophilsBandLymphocyteAtypical LymphMonocyteEosinophilBasophilMetamyelocyteMyelocytePromyelocyteNucleated Red Blood CellPlatelet EstimatePlatelet MorphologyHypochromasiaGiant Platelets [facility]Com[facility] 2000 panel - Serum or Plasma 2020-01-24 09:35:00 Test Item Value Reference Range Interpretation Comments glucose (test code = glucose) 143 mg/dL 74-106 H Urea nitrogen [Mass/volume] in 7 mg/dL 6-20 Serum or Plasma (test code = 3094-0) osmolality calculated,serum (test 269 mOsm/kg 280-300 L code = osmolality calculated,serum) creatinine (test code = 0.6 mg/dL 0.50-0.90 creatinine) glomerular filtration rate (test >60.00 code = glomerular filtration rate) Urea nitrogen/Creatinine [Mass 11.7 12-20 L Ratio] in Serum or Plasma (test code = 3097-3) sodium level (test code = sodium 134 mmol/L 135-145 L level) Potassium [Moles/volume] in Body 4.0 mmol/L 3.5-5.2 fluid (test code = 2821-7) chloride level (test code = 98 mmol/L 98-108 chloride level) CO2 (test code = CO2) 24 mmol/L 21-32 anion gap (test code = anion gap) 16.0 mEq/L 12-20 calcium level (test code = 9.3 mg/dL 8.6-10.0 calcium level) total protein (test code = total 7.5 g/dL 6.6-8.7 protein) albumin (test code = albumin) 4.3 g/dL 3.5-5.2 globulin (test code = globulin) 3.2 gm/dL A/G ratio (test code = A/G ratio) 1.3 >1.0 bilirubin,total (test code = 0.8 mg/dL 0.0-1.2 bilirubin,total) AST/SGOT (test code = AST/SGOT) 19 U/L 15-32 Alanine aminotransferase 28 U/L 0-33 [Enzymatic activity/volume] in Serum or Plasma (test code = 1742-6) Alkaline phosphatase [Enzymatic 89 U/L 35-105 activity/volume] in Serum or Plasma (test code = 6768-6) [facility]Lip[facility] [Enzymatic activity/volume] in Serum or Plasma 2020-01-24 09:35:00 Test Item Value Reference Range Interpretation Comments lipase (test code = lipase) 13 U/L 13-60 [facility] HospitalAmylase [Enzymatic activity/volume] in Serum or Plasma 2020-01-24 09:35:00 Test Item Value Reference Range Interpretation Comments Amylase [Enzymatic activity/volume] in 33 U/L 25-115 Serum or Plasma (test code = 1798-8) [facility] HospitalCreatine kinase [Enzymatic activity/volume] in Serum or [id number] 09:35:00 Test Item Value Reference Range Interpretation Comments creatine kinase (test code = creatine 54 U/L 20-180 kinase) [facility] HospitalTroponin I.cardiac [Mass/volume] in [id number] 09:35:00 Test Item Value Reference Range Interpretation Comments cardiac troponin I (test code = cardiac <0.30 0.0-0.5 troponin I) [facility] HospitalCreatine kinase.MB [Mass/volume] in Serum or Plasma 2020-01-24 09:35:00 Test Item Value Reference Range Interpretation Comments Creatine kinase.MB [Mass/volume] in <1.0 0.0-3.6 Serum or Plasma by Immunoassay (test code = 43177-8) [facility] HospitalChoriogonadotropin ( test) [Presence] in Serum or [id number] 09:35:00 Test Item Value Reference Range Interpretation Comments Choriogonadotropin.beta subunit negative neg ( test) [Presence] in Serum or Plasma (test code = 2110-5) [facility] HospitalHemoglobin A1c [Mass/volume] in [id number] 09:35:00 Test Item Value Reference Range Interpretation Comments Hemoglobin A1c [Mass/volume] in Blood 6.5 % 4.0-6.0 H (test code = 13210-4) [facility] HospitalUrinalysis complete panel - [id number] 08:30:00 Test Item Value Reference Range Interpretation Comments Color of Urine by Auto (test light yellow code = 38284-9) Appearance of Urine (test code SL cloudy clear A = 5767-9) Glucose [Presence] in Urine by negative negative Automated test strip (test code = 22840-4) Bilirubin.total [Mass/volume] negative negative in Urine (test code = 1977-) Ketones [Mass/volume] in Urine negative negative by Automated test strip (test code = 85042-7) Specific gravity of Urine by 1.016 1.003-1.030 Automated test strip (test code = 47818-0) blood urine (test code = blood negative negative urine) pH of Urine (test code = 7.000 5-9 2756-5) protein urine (UA) (test code = trace negative protein urine (UA)) Urobilinogen [Presence] in normal 0.2-1.0 Urine (test code = 81824-9) Nitrite [Presence] in Urine by negative negative Test strip (test code = 5802-4) Leukocyte esterase [Presence] =3 negative H in Urine by Automated test strip (test code = 05404-3) Erythrocytes [#/volume] in =1-5 0-5 Urine by Automated count (test code = 798-9) Leukocytes [#/area] in Urine =20-29 0-5 H sediment by Automated count (test code = 01416-6) Epithelial cells [Presence] in =1-5 0-5 Urine sediment by Light microscopy (test code = 50889-5) Bacteria identified in Urine by small(1 none detect Culture (test code = 630-4) Casts [#/area] in Urine none detected none detect sediment by Automated count (test code = 20795-7) urine culture added? (test code yes = urine culture added?) [facility] - [id number] 03:15:00 Test Item Value Reference Range Interpretation Comments Color of Urine by Auto (test light yellow code = 26972-8) Appearance of Urine (test code clear clear = 5767-9) Glucose [Presence] in Urine by negative negative Automated test strip (test code = 26632-6) Bilirubin.total [Mass/volume] negative negative in Urine (test code = 1977-08) Ketones [Mass/volume] in Urine negative negative by Automated test strip (test code = 10291-8) Specific gravity of Urine by 1.020 1.003-1.030 Automated test strip (test code = 75310-4) blood urine (test code = blood negative negative urine) pH of Urine (test code = 6.500 5-9 2756-5) protein urine (UA) (test code = trace negative protein urine (UA)) Urobilinogen [Presence] in normal 0.2-1.0 Urine (test code = 61835-3) Nitrite [Presence] in Urine by negative negative Test strip (test code = 5802-4) Leukocyte esterase [Presence] =2 negative H in Urine by Automated test strip (test code = 57904-9) Erythrocytes [#/volume] in =1-5 0-5 Urine by Automated count (test code = 798-9) Leukocytes [#/area] in Urine =1-5 0-5 sediment by Automated count (test code = 51487-4) Epithelial cells [Presence] in =1-5 0-5 Urine sediment by Light microscopy (test code = 18336-9) Bacteria identified in Urine by small(1 none detect Culture (test code = 630-4) Casts [#/area] in Urine none detected none detect sediment by Automated count (test code = 45116-6) urine culture added? (test code yes = urine culture added?) [facility] HospitalB[facility] identified in Urine by [id number] 03:15:00Bacteria Ur [facility] HospitalCB W Auto Differential panel - [id number] 01:51:00 Test Item Value Reference Range Interpretation Comments white blood count (test code = 13.0 K/uL 4.0-11.5 white blood count) red blood count (test code = red 4.60 M/uL 3.80-5.20 blood count) hemoglobin (test code = 13.7 g/dL 10.5-15.7 hemoglobin) hematocrit (test code = 40.8 % 34.0-50.0 hematocrit) MCV [Entitic volume] (test code = 88.7 fL 86-100 01663-2) mean corpuscular hemoglobin (test 29.8 pg 26.2-33.4 code = mean corpuscular hemoglobin) mean corpuscular HGB conc (test 33.6 g/dL 30-34 code = mean corpuscular HGB conc) red cell distribution width (test 12.6 % 12.0-15.5 code = red cell distribution width) platelet count (test code = 388 K/uL 165-450 platelet count) mean platelet volume (test code = 8.9 fL 9.4-12.6 L mean platelet volume) Segmented neutrophils/100 65.7 % 44.4-80.1 leukocytes in Blood (test code = 77153-4) Immature granulocytes [#/volume] 0.1 K/uL 0.0-0.03 H in Blood (test code = 78753-7) lymphocyte% (test code = 27.8 % 10.0-50.0 lymphocyte%) mono % (test code = mono %) 4.8 % 3.6-12.0 eos % (test code = eos %) 0.8 % 0.0-5.4 Basophils/100 leukocytes in 0.2 % 0.1-1.2 Unspecified specimen (test code = 20099-3) Band form neutrophils [#/volume] 8.55 K/uL 1.56-6.13 H in Blood (test code = 80255-2) Lymphocytes [#/volume] in 3.6 K/uL 1.18-3.74 Unspecified specimen by Automated count (test code = 43558-0) mono # (test code = mono #) 0.62 K/uL 0.24-0.86 eos # (test code = eos #) 0.11 K/uL 0.04-0.36 basophil # (test code = basophil 0.03 K/uL 0.01-0.08 #) NRBC% (test code = NRBC%) 0 /100 WBC 0-0.2 NRBC# (test code = NRBC#) 0 K/uL [facility] method unspecified - [id number] 01:51:00NeutrophilsBandLymphocyteAtypical LymphMonocyteEosinophilBasophilMyelocytePlatelet EstimatePlatelet M orphologyAnisocytosisToxic GranulationHypersegmented PolysDifferential comment-P [facility] HospitalPT/[id number] 01:51:00 Test Item Value Reference Range Interpretation Comments prothrombin time (test code = 10.4 seconds 10.3-12.3 prothrombin time) INR in Blood by Coagulation 0.97 assay (test code = 90964-4) [facility]partial thromb[facility]in [id number] 01:51:00 Test Item Value Reference Range Interpretation Comments INR in Blood by Coagulation 23.7 seconds 22.5-37.0 assay (test code = 55926-6) [facility]Com[facility] 2000 [facility] - Serum or Plasma 2020-01-23 01:51:00 Test Item Value Reference Range Interpretation Comments glucose (test code = glucose) 126 mg/dL 74-106 H Urea nitrogen [Mass/volume] in 8 mg/dL 6-20 Serum or Plasma (test code = 3094-0) osmolality calculated,serum (test 266 mOsm/kg 280-300 L code = osmolality calculated,serum) creatinine (test code = 0.6 mg/dL 0.50-0.90 creatinine) glomerular filtration rate (test >60.00 code = glomerular filtration rate) Urea nitrogen/Creatinine [Mass 13.3 12-20 Ratio] in Serum or Plasma (test code = 3097-3) sodium level (test code = sodium 133 mmol/L 135-145 L level) Potassium [Moles/volume] in Body 4.0 mmol/L 3.5-5.2 fluid (test code = 2821-7) chloride level (test code = 97 mmol/L 98-108 L chloride level) CO2 (test code = CO2) 20 mmol/L 21-32 L anion gap (test code = anion gap) 20.0 mEq/L 12-20 calcium level (test code = 9.5 mg/dL 8.6-10.0 calcium level) total protein (test code = total 7.3 g/dL 6.6-8.7 protein) albumin (test code = albumin) 4.4 g/dL 3.5-5.2 globulin (test code = globulin) 2.9 gm/dL A/G ratio (test code = A/G ratio) 1.5 >1.0 bilirubin,total (test code = 0.6 mg/dL 0.0-1.2 bilirubin,total) AST/SGOT (test code = AST/SGOT) 23 U/L 15-32 Alanine aminotransferase 32 U/L 0-33 [Enzymatic activity/volume] in Serum or Plasma (test code = 1742-6) Alkaline phosphatase [Enzymatic 95 U/L 35-105 activity/volume] in Serum or Plasma (test code = 6768-6) [facility] HospitalNatriuretic peptide.B prohormone N-Terminal [Mass/volume] in Serum or [id number] 01:51:00 Test Item Value Reference Range Interpretation Comments N-term pro natriuretic peptide (test 39 pg/mL 0-125 code = N-term pro natriuretic peptide) [facility] HospitalTroponin I.cardiac [Mass/volume] in [id number] 01:51:00 Test Item Value Reference Range Interpretation Comments cardiac troponin I (test code = cardiac <0.30 0.0-0.5 troponin I) [facility] HospitalCreatine kinase.MB [Mass/volume] in Serum or Plasma 2020-01-23 01:51:00 Test Item Value Reference Range Interpretation Comments Creatine kinase.MB [Mass/volume] in 1.2 NG/mL 0.0-3.6 Serum or Plasma by Immunoassay (test code = 36241-9) [facility] HospitalCreatine kinase [Enzymatic activity/volume] in Serum or [id number] 01:51:00 Test Item Value Reference Range Interpretation Comments creatine kinase (test code = creatine 68 U/L 20-180 kinase) [facility] HospitalChoriogonadotropin ( test) [Presence] in Serum or [id number] 01:51:00 Test Item Value Reference Range Interpretation Comments Choriogonadotropin.beta subunit negative neg ( test) [Presence] in Serum or Plasma (test code = 2110-5) [facility] HospitalUrinalysis macro (dipstick) panel - [id number] 15:29:00 Test Item Value Reference Range Interpretation Comments Leukocytes (test code = Leukocytes) Trace Nitrite (test code = Nitrite) negative Urobilinogen (test code = .2 Urobilinogen) Protein (test code = Protein) Trace pH (test code = pH) 5.5 Blood (test code = Blood) Negative Specific [place] (test code = 1.030 Specific [place]) Ketone (test code = Ketone) Trace Bilirubin (test code = Bilirubin) Small Glucose (test code = Glucose) Negative Appearance (test code = Appearance) Clear Color (test code = Color) Yellow [facility] HospitalUrinalysis macro (dipstick) panel - [id number] 15:29:00 Test Item Value Reference Range Interpretation Comments Leukocytes (test code = Leukocytes) Trace Nitrite (test code = Nitrite) negative Urobilinogen (test code = .2 Urobilinogen) Protein (test code = Protein) Trace pH (test code = pH) 5.5 Blood (test code = Blood) Negative Specific [place] (test code = 1.030 Specific [place]) Ketone (test code = Ketone) Trace Bilirubin (test code = Bilirubin) Small Glucose (test code = Glucose) Negative Appearance (test code = Appearance) Clear Color (test code = Color) [facility] - [id number] 06:10:00 Test Item Value Reference Range Interpretation Comments white blood count (test code = 9.1 K/uL 4.0-11.5 white blood count) red blood count (test code = red 4.25 M/uL 3.80-5.20 blood count) hemoglobin (test code = 12.3 g/dL 10.5-15.7 hemoglobin) hematocrit (test code = 36.7 % 34.0-50.0 hematocrit) Erythrocyte mean corpuscular 86.4 fL 86-100 volume [Entitic volume] (test code = 82130-7) mean corpuscular hemoglobin (test 28.9 pg 26.2-33.4 code = mean corpuscular hemoglobin) mean corpuscular HGB conc (test 33.5 g/dL 30-34 code = mean corpuscular HGB conc) red cell distribution width (test 12.8 % 12.0-15.5 code = red cell distribution width) platelet count (test code = 353 K/uL 165-450 platelet count) mean platelet volume (test code = 9.0 fL 9.4-12.6 L mean platelet volume) Neutrophils.segmented/100 56.1 % 44.4-80.1 leukocytes in Blood (test code = 15383-3) Granulocytes Immature [#/volume] 0.0 K/uL 0.0-0.03 in Blood (test code = 23888-1) lymphocyte% (test code = 35.8 % 10.0-50.0 lymphocyte%) mono % (test code = mono %) 6.3 % 3.6-12.0 eos % (test code = eos %) 1.4 % 0.0-5.4 Basophils/100 leukocytes in 0.2 % 0.1-1.2 Unspecified specimen (test code = 57741-1) Neutrophils.band form [#/volume] 5.10 K/uL 1.56-6.13 in Blood (test code = 32634-0) Lymphocytes [#/volume] in 3.3 K/uL 1.18-3.74 Unspecified specimen by Automated count (test code = 21269-9) mono # (test code = mono #) 0.57 K/uL 0.24-0.86 eos # (test code = eos #) 0.13 K/uL 0.04-0.36 basophil # (test code = basophil 0.02 K/uL 0.01-0.08 #) NRBC% (test code = NRBC%) 0 /100 WBC 0-0.2 NRBC# (test code = NRBC#) 0 K/uL [facility] Hospitaldifferential panel, [id number] 06:10:00 NeutrophilsBandLymphocyteAtypical LymphMonocyteEosinophilPlatelet EstimatePlatelet MorphologyHypochromasiaAnisocytosisMicrocytosisDohle BodiesToxic VacuolationFor[facility] HospitalComprehensive metabolic 2000 panel - Serum or [id number] 06:10:00 Test Item Value Reference Range Interpretation Comments glucose (test code = glucose) 107 mg/dL 74-106 H Urea nitrogen [Mass/volume] in 14 mg/dL 6-20 Serum or Plasma (test code = 3094-0) osmolality calculated, serum (test 279 280-300 L code = osmolality calculated, serum) creatinine (test code = 0.7 mg/dL 0.50-0.90 creatinine) glomerular filtration rate (test >60.00 code = glomerular filtration rate) Urea nitrogen/Creatinine [Mass 20.0 12-20 Ratio] in Serum or Plasma (test code = 3097-3) sodium level (test code = sodium 139 mmol/L 135-145 level) Potassium [Moles/volume] in Body 4.0 mmol/L 3.5-5.2 fluid (test code = 2821-7) chloride level (test code = 101 mmol/L 98-108 chloride level) CO2 (test code = CO2) 26 mmol/L 21-32 anion gap (test code = anion gap) 16.0 mEq/L 12-20 calcium level (test code = calcium 9.6 mg/dL 8.6-10.0 level) total protein (test code = total 7.7 g/dL 6.6-8.7 protein) albumin (test code = albumin) 4.4 g/dL 3.5-5.2 globulin (test code = globulin) 3.3 gm/dL A/G ratio (test code = A/G ratio) 1.3 >1.0 bilirubin,total (test code = 0.5 mg/dL 0.0-1.2 bilirubin,total) AST/SGOT (test code = AST/SGOT) 28 U/L 15-32 Alanine aminotransferase 36 U/L 0-33 H [Enzymatic activity/volume] in Serum or Plasma (test code = 1742-6) Alkaline phosphatase [Enzymatic 82 U/L 35-105 activity/volume] in Serum or Plasma (test code = 6768-6) [facility] HospitalCreatine kinase [Enzymatic activity/volume] in Serum or [id number] 06:10:00 Test Item Value Reference Range Interpretation Comments creatine kinase (test code = creatine 133 U/L 20-180 kinase) [facility] HospitalNatriuretic peptide.B prohormone N-Terminal [Mass/volume] in Serum or [id number] 06:10:00 Test Item Value Reference Range Interpretation Comments N-term pro natriuretic peptide (test 34 pg/mL 0-125 code = N-term pro natriuretic peptide) [facility] HospitalTroponin I.cardiac [Mass/volume] in [id number] 06:10:00 Test Item Value Reference Range Interpretation Comments cardiac troponin I (test code = cardiac <0.30 0.0-0.5 troponin I) [facility] HospitalCreatine kinase.MB [Mass/volume] in Serum or Plasma 2018-11-22 06:10:00 Test Item Value Reference Range Interpretation Comments mass creatinine kinase-mb (test 2.2 NG/mL 0.0-3.6 code = mass creatinine kinase-mb) [facility] HospitalPT/[id number] 06:10:00 Test Item Value Reference Range Interpretation Comments prothrombin time (test code = 10.2 seconds 10.3-12.3 L prothrombin time) INR in Blood by Coagulation 0.92 assay (test code = 11734-9) [facility]partial thromboplastin [id number] 06:10:00 Test Item Value Reference Range Interpretation Comments INR in Blood by Coagulation 29.6 seconds 22.5-37.0 assay (test code = 41253-6) [facility] W Auto Differential panel - [id number] 09:30:00 Test Item Value Reference Range Interpretation Comments white blood count (test code = 12.4 K/uL 4.0-11.5 H white blood count) red blood count (test code = red 4.48 M/uL 3.80-5.20 blood count) Hemoglobin [Mass/volume] in Blood 13.0 g/dL 10.5-15.7 (test code = 718-7) hematocrit (test code = hematocrit) 39.4 % 34.0-50.0 Erythrocyte mean corpuscular volume 88.0 fL 78-98 [Entitic volume] (test code = 27735-9) Erythrocyte mean corpuscular 29.0 pg 26.2-33.4 hemoglobin [Entitic mass] (test code = 30840-5) mean corpuscular HGB conc (test 33.0 g/dL 31.5-36.2 code = mean corpuscular HGB conc) red cell distribution width (test 12.2 % 11.5-15.5 code = red cell distribution width) Platelets [#/volume] in Blood (test 389 K/uL 137-338 H code = 71794-5) Platelet mean volume [Entitic 6.4 fL 8.4-11.8 L volume] in Blood (test code = 51387-8) Neutrophils.band form/100 70.3 % 44.4-80.1 leukocytes in Blood (test code = 41180-0) Lymphocytes/100 leukocytes in Body 23.0 % 10.0-50.0 fluid (test code = 42830-0) Monocytes/100 leukocytes in Blood 4.1 % 3.6-12.04 by Automated count (test code = 5905-5) Eosinophils/100 leukocytes in Blood 2.0 % 0.0-5.41 by Automated count (test code = 713-8) Basophils/100 leukocytes in 0.7 % 0.0-0.79 Unspecified specimen (test code = 98454-6) [facility] HospitalHemoglobin A1c [Mass/volume] in [id number] 09:30:00 Test Item Value Reference Range Interpretation Comments Hemoglobin A1c in Blood (test code = 6.1 % 4.0-6.0 H 71915-4) [facility] HospitalCom[facility] 2000 panel - Serum or Plasma 2018-07-12 09:30:00 Test Item Value Reference Range Interpretation Comments Glucose [Mass/volume] in Serum or 158 mg/dL 74-106 H Plasma (test code = 2345-7) Urea nitrogen [Mass/volume] in 8 mg/dL 6-20 Serum or Plasma (test code = 3094-0) Osmolality of Serum or Plasma 272 280-300 L (test code = 2692-2) creatinine (test code = 0.5 mg/dL 0.50-0.90 creatinine) glomerular filtration rate (test >60.00 code = glomerular filtration rate) Urea nitrogen/Creatinine [Mass 16.0 12-20 Ratio] in Serum or Plasma (test code = 3097-3) sodium level (test code = sodium 135 mmol/L 135-145 level) potassium level (test code = 4.3 mmol/L 3.5-5.2 potassium level) chloride level (test code = 99 mmol/L 98-108 chloride level) CO2 (test code = CO2) 22 mmol/L 21-32 anion gap (test code = anion gap) 18.3 mEq/L 12-20 calcium level (test code = calcium 9.2 mg/dL 8.6-10.0 level) total protein (test code = total 7.5 g/dL 6.6-8.7 protein) albumin (test code = albumin) 3.8 g/dL 3.5-5.2 globulin (test code = globulin) 3.7 gm/dL A/G ratio (test code = A/G ratio) 1.0 >1.0 bilirubin,total (test code = 0.5 mg/dL 0.0-1.2 bilirubin,total) AST/SGOT (test code = AST/SGOT) 27 U/L 15-32 Alanine aminotransferase 31 U/L 0-33 [Enzymatic activity/volume] in Serum or Plasma (test code = 1742-6) Alkaline phosphatase [Enzymatic 91 U/L 35-105 activity/volume] in Serum or Plasma (test code = 6768-6) [facility] HospitalLipid 1996 panel - Serum or [id number] 09:30:00 Test Item Value Reference Range Interpretation Comments cholesterol level (test code = 184 mg/dL 150-200 cholesterol level) triglycerides level (test code = 345 mg/dL <150 H triglycerides level) HDL cholesterol (test code = HDL 38 mg/dL >65 L cholesterol) LDL cholesterol direct (test code = 123 mg/dL <100 H LDL cholesterol direct) cholesterol risk ratio (test code = 4.842 cholesterol risk ratio) [facility] HospitalThyrotropin [Units/volume] in Serum or [id number] 09:30:00 Test Item Value Reference Range Interpretation Comments Thyrotropin [Units/volume] in 3.71 uIU/mL 0.36-3.74 Serum or Plasma (test code = 3016-3) [facility] W Auto Differential panel - [id number] 09:30:00 Test Item Value Reference Range Interpretation Comments white blood count (test code = 12.4 K/uL 4.0-11.5 H white blood count) red blood count (test code = red 4.48 M/uL 3.80-5.20 blood count) Hemoglobin [Mass/volume] in Blood 13.0 g/dL 10.5-15.7 (test code = 718-7) hematocrit (test code = hematocrit) 39.4 % 34.0-50.0 Erythrocyte mean corpuscular volume 88.0 fL 78-98 [Entitic volume] (test code = 78772-7) Erythrocyte mean corpuscular 29.0 pg 26.2-33.4 hemoglobin [Entitic mass] (test code = 31539-4) mean corpuscular HGB conc (test 33.0 g/dL 31.5-36.2 code = mean corpuscular HGB conc) red cell distribution width (test 12.2 % 11.5-15.5 code = red cell distribution width) Platelets [#/volume] in Blood (test 389 K/uL 137-338 H code = 31322-1) Platelet mean volume [Entitic 6.4 fL 8.4-11.8 L volume] in Blood (test code = 73916-1) Neutrophils.band form/100 70.3 % 44.4-80.1 leukocytes in Blood (test code = 60936-7) Lymphocytes/100 leukocytes in Body 23.0 % 10.0-50.0 fluid (test code = 54211-1) Monocytes/100 leukocytes in Blood 4.1 % 3.6-12.04 by Automated count (test code = 5905-5) Eosinophils/100 leukocytes in Blood 2.0 % 0.0-5.41 by Automated count (test code = 713-8) Basophils/100 leukocytes in 0.7 % 0.0-0.79 Unspecified specimen (test code = 60905-3) [facility] HospitalHemoglobin A1c [Mass/volume] in [id number] 09:30:00 Test Item Value Reference Range Interpretation Comments Hemoglobin A1c in Blood (test code = 6.1 % 4.0-6.0 H 19427-9) [facility]Com[facility] 2000 panel - Serum or Plasma 2018-07-12 09:30:00 Test Item Value Reference Range Interpretation Comments Glucose [Mass/volume] in Serum or 158 mg/dL 74-106 H Plasma (test code = 2345-7) Urea nitrogen [Mass/volume] in 8 mg/dL 6-20 Serum or Plasma (test code = 3094-0) Osmolality of Serum or Plasma 272 280-300 L (test code = 2692-2) creatinine (test code = 0.5 mg/dL 0.50-0.90 creatinine) glomerular filtration rate (test >60.00 code = glomerular filtration rate) Urea nitrogen/Creatinine [Mass 16.0 12-20 Ratio] in Serum or Plasma (test code = 3097-3) sodium level (test code = sodium 135 mmol/L 135-145 level) potassium level (test code = 4.3 mmol/L 3.5-5.2 potassium level) chloride level (test code = 99 mmol/L 98-108 chloride level) CO2 (test code = CO2) 22 mmol/L 21-32 anion gap (test code = anion gap) 18.3 mEq/L 12-20 calcium level (test code = calcium 9.2 mg/dL 8.6-10.0 level) total protein (test code = total 7.5 g/dL 6.6-8.7 protein) albumin (test code = albumin) 3.8 g/dL 3.5-5.2 globulin (test code = globulin) 3.7 gm/dL A/G ratio (test code = A/G ratio) 1.0 >1.0 bilirubin,total (test code = 0.5 mg/dL 0.0-1.2 bilirubin,total) AST/SGOT (test code = AST/SGOT) 27 U/L 15-32 Alanine aminotransferase 31 U/L 0-33 [Enzymatic activity/volume] in Serum or Plasma (test code = 1742-6) Alkaline phosphatase [Enzymatic 91 U/L 35-105 activity/volume] in Serum or Plasma (test code = 6768-6) [facility] 1996 panel - Serum or [id number] 09:30:00 Test Item Value Reference Range Interpretation Comments cholesterol level (test code = 184 mg/dL 150-200 cholesterol level) triglycerides level (test code = 345 mg/dL <150 H triglycerides level) HDL cholesterol (test code = HDL 38 mg/dL >65 L cholesterol) LDL cholesterol direct (test code = 123 mg/dL <100 H LDL cholesterol direct) cholesterol risk ratio (test code = 4.842 cholesterol risk ratio) [facility] HospitalThyrotropin [Units/volume] in Serum or [id number] 09:30:00 Test Item Value Reference Range Interpretation Comments Thyrotropin [Units/volume] in 3.71 uIU/mL 0.36-3.74 Serum or Plasma (test code = 3016-3) [facility] HospitalUrinalysis macro (dipstick) panel - [id number] 09:28:00 Test Item Value Reference Range Interpretation Comments Color of Urine by Auto (test code yellow = 99874-5) Appearance of Urine (test code = SL cloudy clear A 5767-9) Glucose [Mass/volume] in Urine negative negative (test code = 2350-7) bilirubin, urine (test code = negative negative bilirubin, urine) ketone, urine (test code = trace negative H ketone, urine) Specific gravity of Urine by 1.020 1.003-1.030 Automated test strip (test code = 06044-1) Hemoglobin [Presence] in Urine by moderate negative H Test strip (test code = 5794-3) pH of Urine (test code = 2756-5) 6.500 5-9 protein urine (UA) (test code = trace negative H protein urine (UA)) Urobilinogen [Presence] in Urine 0.2 E.U./dL 0.2-1.0 (test code = 46139-1) Nitrite [Presence] in Urine by negative negative Test strip (test code = 5802-4) urine leukocyte esterase (test =3 negative H code = urine leukocyte esterase) Erythrocytes [Presence] in Urine =4-6 0-5 H (test code = 25322-0) WBC, urine (test code = WBC, =15-19 0-5 H urine) bacteria, urine (test code = small (1 none detect H bacteria, urine) Casts [#/area] in Urine sediment none seen none detect by Automated count (test code = 01374-8) urine culture added? (test code = yes urine culture added?) squamous epithelial cell urine =0-5 0-5 (test code = squamous epithelial cell urine) Amorphous sediment [Presence] in trace none seen Urine sediment by Light microscopy (test code = 8246-1) [facility] GroupUrinal[facility] macro (dipstick) panel - [id number] 09:28:00 Test Item Value Reference Range Interpretation Comments Color of Urine by Auto (test code yellow = 56862-0) Appearance of Urine (test code = SL cloudy clear A 5767-9) Glucose [Mass/volume] in Urine negative negative (test code = 2350-7) bilirubin, urine (test code = negative negative bilirubin, urine) ketone, urine (test code = trace negative H ketone, urine) Specific gravity of Urine by 1.020 1.003-1.030 Automated test strip (test code = 58158-5) Hemoglobin [Presence] in Urine by moderate negative H Test strip (test code = 5794-3) pH of Urine (test code = 2756-5) 6.500 5-9 protein urine (UA) (test code = trace negative H protein urine (UA)) Urobilinogen [Presence] in Urine 0.2 E.U./dL 0.2-1.0 (test code = 23272-5) Nitrite [Presence] in Urine by negative negative Test strip (test code = 5802-4) urine leukocyte esterase (test =3 negative H code = urine leukocyte esterase) Erythrocytes [Presence] in Urine =4-6 0-5 H (test code = 61176-5) WBC, urine (test code = WBC, =15-19 0-5 H urine) bacteria, urine (test code = small (1 none detect H bacteria, urine) Casts [#/area] in Urine sediment none seen none detect by Automated count (test code = 63790-5) urine culture added? (test code = yes urine culture added?) squamous epithelial cell urine =0-5 0-5 (test code = squamous epithelial cell urine) Amorphous sediment [Presence] in trace none seen Urine sediment by Light microscopy (test code = 8246-1) [facility] GroupBacteria identified in Urine by [id number] 09:28:00Bacteria Ur [facility]antib[facility], [id number] 09:28:00 Test Item Value Reference Range Interpretation Comments Gentamicin [Susceptibility] by Minimum <4 inhibitory concentration (GUSTAVO) (test code = 267-5) Ampicillin [Susceptibility] by Minimum >16 inhibitory concentration (GUSTAVO) (test code = 28-1) Cefazolin [Susceptibility] by Minimum <8 inhibitory concentration (GUSTAVO) (test code = 76-0) Trimethoprim+Sulfamethoxazole =2/38 [Susceptibility] by Minimum inhibitory concentration (GUSTAVO) (test code = 516-5) Tetracycline [Susceptibility] by <4 Minimum inhibitory concentration (GUSTAVO) (test code = 496-0) Amoxicillin+Clavulanate =8/4 [Susceptibility] by Minimum inhibitory concentration (GUSTAVO) (test code = 20-8) Tobramycin [Susceptibility] by Minimum <4 inhibitory concentration (GUSTAVO) (test code = 508-2) Nitrofurantoin [Susceptibility] by <32 Minimum inhibitory concentration (GUSTAVO) (test code = 363-2) Cefotaxime [Susceptibility] by Minimum <2 inhibitory concentration (GUSTAVO) (test code = 108-1) Cefepime [Susceptibility] by Minimum <8 inhibitory concentration (GUSTAVO) (test code = 6644-9) Levofloxacin [Susceptibility] by <2 Minimum inhibitory concentration (GUSTAVO) (test code = 59444-4) Piperacillin+Tazobactam <16 [Susceptibility] by Minimum inhibitory concentration (GUSTAVO) (test code = 412-7) Ceftazidime [Susceptibility] by Minimum <1 inhibitory concentration (GUSTAVO) (test code = 133-9) Ceftriaxone [Susceptibility] by Minimum <8 inhibitory concentration (GUSTAVO) (test code = 141-2) Ciprofloxacin [Susceptibility] by <1 Minimum inhibitory concentration (GUSTAVO) (test code = 185-9) Imipenem [Susceptibility] by Minimum <4 inhibitory concentration (GUSTAVO) (test code = 279-0) Ampicillin+Sulbactam [Susceptibility] =16/8 by Minimum inhibitory concentration (GUSTAVO) (test code = 32-3) Ertapenem [Susceptibility] by Minimum <2 inhibitory concentration (GUSTAVO) (test code = 05297-6) Aztreonam [Susceptibility] by Minimum <8 inhibitory concentration (GUSTAVO) (test code = 44-8) [id number] (test code = [id number]) <4 Meropenem [Susceptibility] by Minimum <4 inhibitory concentration (GUSTAVO) (test code = 6652-2) [facility]
[2021-05-14] MEDS ORDERED: DIAZEPAM 5 MG TABLET ONE (07:41)
[2021-05-14 08:02] LABS: Absolute Lymphocytes (CBC) 2.3 K/uL (0.7-4.9); Hematocrit 41.3 % (36.0-45.0); MPV 7.1 fL (7.6-11.3); RBC Red Blood Cell Count 4.81 M/uL (3.86-4.86)
[2021-05-14 08:22] LABS: Albumin 4.1 g/dL (3.4-5.0); Bilirubin Direct 0.3 mg/dL (0-0.2); Bilirubin Total 1.1 mg/dL (0.2-1.0); Potassium 3.5 mmol/L (3.5-5.1); Protein, Total 8.7 g/dL (6.4-8.2); Troponin High Sensitivity 3.5 pg/mL (<58.9)
[2021-05-14] MEDS ORDERED: ONDANSETRON 4 MG/2 ML VIAL ONE (09:10)
[2021-05-14] MEDS ORDERED: MORPHINE 4 MG/ML SYR ONE (09:10)
[2021-05-14 09:19] LABS: Urine Blood Trace-intact (Negative); Urine Glucose Negative (Negative); Urine Protein Negative (Negative)
--- NOTE | 2021-05-14 10:43 | RAD REPORT ---
EXAM DESCRIPTION: CT - Chest For Pe Angio - 05/14/2021 10:26 am CLINICAL HISTORY: Chest pain. right sided chest pain COMPARISON: Abdomen Pelvis W Contrast dated 05/14/2021 TECHNIQUE: CT angiogram of the pulmonary arteries was performed with MIP. All CT scans are performed using dose optimization technique as appropriate and may include automated exposure control or mA/KV adjustment according to patient size. FINDINGS: Bolus timing is suboptimal and therefore pulmonary embolism is not well assessed. No large embolus in the main pulmonary artery or saddle embolus seen, however further evaluation is not possi ble. No acute aortic finding demonstrated. The lungs are clear. No significant pericardial or pleural fluid. No concerning bony finding. IMPRESSION: There is poor bolus timing of the pulmonary artery. This markedly limits assessment for pulmonary embolism. If there is continued concern, V/Q scan could be performed as the patient has jordin ar lungs. No acute lung findings.
--- NOTE | 2021-05-14 10:46 | RAD REPORT ---
EXAM DESCRIPTION: CTAbdomen Pelvis W Contrast - 05/14/2021 10:28 am CLINICAL HISTORY: Abdominal pain. abdominal pain COMPARISON: No comparisons TECHNIQUE: Biphasic CT imaging of the abdomen and pelvis was performed with 100 ml non-ionic IV cont rast. All CT scans are performed using dose optimization technique as appropriate and may include automated exposure control or mA/KV adjustment according to patient size. FINDINGS: The lung bases are clear. The liver is diffusely fatty. Mild pneumobilia is present. The gallbladder appears absent. Spleen, pa ncreas, adrenal glands and kidneys are within normal limits. No bowel obstruction, free air, free fluid or abscess. The appendix is normal. No evidence of signi ficant lymphadenopathy. Spondylosis is noted at L4-5. IMPRESSION: Prominent diffuse fatty liver is present. Cholecystectomy with mild pneumobilia.
[2021-05-14] MEDS ORDERED: KETOROLAC 30 MG/ML INJ ONE (11:11)
[2021-05-14] MEDS ORDERED: MAGNESIUM HYDROXIDE 8% 30 ML ONE (11:38)
[2021-05-14] MEDS ORDERED: LIDOCAINE VISCOUS 2% SOLN 15 ML UDC ONE (11:39)
--- NOTE | 2021-05-14 13:39 | ER ---
Nurse's Notes [facility] Name: Katelyn Novak Age: 30 yrs Sex: Female : 1990 Arrival Date: 05/14/2021 Time: 07:19 Bed 13 Private MD: Francine Chan Diagnosis: Upper abdominal pain, unspecified;Pain in thoracic spine Presentation: 05/14 07:31 Chief complaint: Patient states: R sided back pain that radiates around R flank to ll1 upper abdomen for 2 days. Seen at [place] last night, pain returned so she came here. No fever. No vomiting or diarrhea. 07:46 Coronavirus screen: Vaccine status: Patient reports being unvaccinated. Client denies [facility] travel out of the [place] in the last 14 days. At this time, the client does not indicate any symptoms associated with coronavirus-19. Ebola Screen: Patient denies travel to an Ebola-affected area in the 21 days before illness onset. Initial Sepsis Screen: Does the patient meet any 2 criteria? No. Patient's initial sepsis screen is negative. Does the patient have a suspected source of infection? Yes: Acute abdominal pain. Risk Assessment: Do you want to hurt yourself or someone else? Patient reports no desire to harm self or others. Onset of symptoms was May 13, 2021. 07:46 Method Of Arrival: Ambulatory [facility] 07:46 Acuity: ALAYNA 3 ll1 Triage Assessment: 07:30 General: Appears uncomfortable, Behavior is cooperative, appropriate for age. Pain: 1 Complains of pain in R mid back Pain currently is 10 out of 10 on a pain scale. Neuro: No deficits noted. Cardiovascular: No deficits noted. Respiratory: No deficits noted. GI: Abdomen is round Reports upper abdominal pain, nausea. Musculoskeletal: Circulation, motion, and sensation intact. Capillary refill < 3 seconds, Reports pain in R mid back. Historical: - Allergies: 07:30 Ciprofloxacin; ll1 - PMHx: 07:30 Diabetes mellitus; Hypertensive disorder; Depressive disorder; Anxiety; ll1 - PSHx: 07:30 Cholecystectomy; L fallopian tube removed; ll1 - Immunization history:: Client reports having NOT received the Covid vaccine. - Social history:: Smoking status: Patient denies any tobacco usage or history of. Screenin:20 Abuse screen: Denies threats or abuse. Denies injuries from another. Nutritional cb5 screening: No deficits noted. Tuberculosis screening: No symptoms or risk factors identified. 08:08 Fall Risk None identified. cb5 Assessment: 07:20 General: Appears comfortable, Behavior is calm, cooperative, appropriate for age. Pain: cb5 Complains of pain in abdomen Pain currently is 4 out of 10 on a pain scale. Neuro: No deficits noted. Cardiovascular: No deficits noted. Respiratory: No deficits noted. GI: Bowel sounds present X 4 quads. Abd is soft Abd is non tender. : No deficits noted. EENT: No deficits noted. Derm: No deficits noted. Musculoskeletal: No deficits noted. 08:30 Reassessment: No changes from previously documented assessment. Patient and/or family cb5 updated on plan of care and expected duration. Pain level reassessed. 09:30 Reassessment: Patient and/or family updated on plan of care and expected duration. Pain cb5 level reassessed. 09:30 Pain: Pain currently is 2 out of 10 on a pain scale. cb5 10:30 Reassessment: Patient and/or family updated on plan of care and expected duration. Pain cb5 level reassessed. 11:30 Reassessment: Patient and/or family updated on plan of care and expected duration. Pain cb5 level reassessed. Vital Signs: 07:46 BP 131 / 92; Pulse 87; Resp 17; Temp 97.4; Pulse Ox 100% ; Weight 145.15 kg; Height 5 ll1 ft. 3 in. (160.02 cm); Pain 10/10; 09:30 BP 132 / 87; Pulse 80; Resp 16; Pulse Ox 99% ; Pain 4/10; cb5 14:00 BP 130 / 80; Pulse 79; Resp 16; Temp 98.4; Pulse Ox 98% ; Pain 2/10; cb5 07:46 Body Mass Index 56.68 (145.15 kg, 160.02 cm) ll1 ED Course: 07:19 Patient arrived in ED. mr 07:19 Francine Chan MD is Private Physician. mr 07:20 [facility] 07:20 Sigifredo Aponte MD is Attending Physician. jm 07:25 Arm band placed on Patient placed in an exam room, on a stretcher. ll1 07:48 Triage completed. ll1 07:53 Initial lab(s) drawn, by mn, sent to lab. Inserted saline lock: 20 gauge in left 3 antecubital area, using aseptic technique. Blood collected. 08:04 Aziza Regalado, RN is Primary Nurse. cb5 08:08 Bed in low position. Call light in reach. Side rails up X 1. cb5 08:17 Lipase Sent. cb5 08:18 Hepatic Function Sent. cb5 08:18 Basic Metabolic Panel Sent. cb5 08:18 Troponin High Sensitivity Sent. cb5 10:26 CT Chest For PE Angio In Process Unspecified. EDMS 10:28 CT Abd/Pelvis - IV Contrast Only In Process Unspecified. EDMS 13:38 Rayshawn Barros MD is Referral Physician. jmm 14:24 No provider procedures requiring assistance completed. cb5 14:25 IV discontinued. cb5 Administered Medications: 07:39 CANCELLED (given poo): Valium (diazepam) 5 mg IVP once jg9 07:40 Drug: Valium (diazepam) 5 mg Route: PO; jg9 09:08 Drug: morphine 4 mg Route: IVP; Site: left antecubital; cb5 09:08 Drug: Zofran (Ondansetron) 4 mg Route: IVP; Site: left antecubital; cb5 11:10 Drug: Ketorolac 30 mg Route: IVP; Site: left antecubital; cb5 11:33 Drug: GI Cocktail without - (Maalox Suspension 30 ml, Lidocaine Liquid 2 % 15 cb5 ml) Route: PO; Outcome: 13:39 Discharge ordered by MD. jmm 14:24 Discharged to home ambulatory. cb5 14:24 Condition: stable 14:24 Discharge instructions given to patient. 14:25 Patient left the ED. cb5 Signatures: Dispatcher [employer] EDMS Gigi Jerez PA PA jmm Nikos Yenny mr Hutchins, Nakita [facility] Sally Centeno RN RN ll1 Tarsha Nagel RN RN jg9 Aziza Regalado, RN RN cb5 Corrections: (The following items were deleted from the chart) 07:48 07:31 Chief complaint: Patient states: R sided back pain ll1 ll1
--- NOTE | 2021-05-14 13:39 | EDPHYS ---
Physician Documentation [facility] Name: Katelyn Novak Age: 30 yrs Sex: Female : 1990 Arrival Date: 05/14/2021 Time: 07:19 Bed 13 Private MD: Francine Chan ED Physician Sigifredo Aponte HPI: 05/14 07:26 This 30 yrs old Female presents to ER via Ambulatory with complaints of Abdominal Pain. [facility] 07:26 The patient presents with abdominal pain. Onset: The symptoms/episode began/occurred jm gradually, 2 day(s) ago. The symptoms radiate to right back. Associated signs and symptoms: Pertinent positives: nausea, Pertinent negatives: fever. The symptoms are described as achy, sharp. Modifying factors: The symptoms are alleviated by nothing, the symptoms are aggravated by nothing. This is a 30-year-old female with history of hypertension, diabetes mellitus, depression the presents emerged department with complaints of epigastric abdominal pain beginning approximately 2 days ago. Patient was evaluated at a stand-alone ER whom ordered a CT of the thoracic spine revealing some degenerative changes. Advised to go to this ER for further evaluation of her pain returns or worsens . Historical: - Allergies: 07:30 Ciprofloxacin; ll1 - PMHx: 07:30 Diabetes mellitus; Hypertensive disorder; Depressive disorder; Anxiety; ll1 - PSHx: 07:30 Cholecystectomy; L fallopian tube removed; ll1 - Immunization history:: Client reports having NOT received the Covid vaccine. - Social history:: Smoking status: Patient denies any tobacco usage or history of. ROS: 14:15 Constitutional: Negative for fever, chills, and weight loss, Cardiovascular: Negative jmm for chest pain, palpitations, and edema, Respiratory: Negative for shortness of breath, cough, wheezing, and pleuritic chest pain. 14:15 Abdomen/GI: Positive for abdominal pain. 14:15 Back: Positive for pain with movement. 14:15 All other systems are negative. Exam: 14:15 Constitutional: This is a well developed, well nourished patient who is awake, alert, jmm and in no acute distress. Head/Face: atraumatic. Eyes: EOMI, no conjunctival erythema appreciated ENT: Moist Mucus Membranes Neck: Trachea midline, Supple Chest/axilla: Normal chest wall appearance and motion. Cardiovascular: Regular rate and rhythm. No edema appreciated Respiratory: Normal respirations, no respiratory distress appreciated Abdomen/GI: Non distended, soft 14:15 Skin: General appearance color normal MS/ Extremity: Moves all extremities, no obvious deformities appreciated, no edema noted to the lower extremities Neuro: Awake and alert Psych: Behavior is normal, Mood is normal, Patient is cooperative and pleasant 14:15 Abdomen/GI: Inspection: obese Bowel sounds: normal, Palpation: soft, mild abdominal tenderness, in the epigastric area. 14:15 Back: Right thoracic pain on palpation. 14:15 Musculoskeletal/extremity: ROM: intact in all extremities. Vital Signs: 07:46 BP 131 / 92; Pulse 87; Resp 17; Temp 97.4; Pulse Ox 100% ; Weight 145.15 kg; Height 5 ll1 ft. 3 in. (160.02 cm); Pain 10/10; 09:30 BP 132 / 87; Pulse 80; Resp 16; Pulse Ox 99% ; Pain 4/10; cb5 14:00 BP 130 / 80; Pulse 79; Resp 16; Temp 98.4; Pulse Ox 98% ; Pain 2/10; cb5 07:46 Body Mass Index 56.68 (145.15 kg, 160.02 cm) ll1 MDM: 07:26 Patient medically screened. heber 13:37 Data reviewed: vital signs, nurses notes. Counseling: I had a detailed discussion with quinten the patient and/or guardian regarding: the historical points, exam findings, and any diagnostic results supporting the discharge/admit diagnosis, radiology results, the need for outpatient follow up, to return to the emergency department if symptoms worsen or persist or if there are any questions or concerns that arise at home. ED course: Patient is alert and non toxic in appearance in the ED. . 05/14 07:30 Order name: Basic Metabolic Panel; Complete Time: 08:26 [facility] 05/14 07:30 Order name: CBC with Diff; Complete Time: 08:04 [facility] 05/14 07:30 Order name: Hepatic Function; Complete Time: 08:26 [facility] 05/14 07:30 Order name: Lipase; Complete Time: 08:26 [facility] 05/14 07:30 Order name: Troponin High Sensitivity; Complete Time: 08: [facility] 05/14 09:18 Order name: Urine Dipstick-Ancillary; Complete Time: 09:23 [facility] 05/14 07:30 Order name: CT Chest For PE Angio; Complete Time: 10:47 [facility] 05/14 07:30 Order name: CT Abd/Pelvis - IV Contrast Only; Complete Time: 10:49 [facility] 05/14 09:21 Order name: Urine --Ancillary (enter results); Complete Time: 09:35 bd 05/14 07:30 Order name: IV Saline Lock; Complete Time: 07:55 [facility] 05/14 07:30 Order name: Labs collected and sent; Complete Time: 07:55 [facility] 05/14 07:30 Order name: Urine Dipstick-Ancillary (obtain specimen); Complete Time: 09:19 [facility] 05/14 07:30 Order name: Urine Test (obtain specimen); Complete Time: 09:19 [facility] Administered Medications: 07:39 CANCELLED (given poo): Valium (diazepam) 5 mg IVP once jg9 07:40 Drug: Valium (diazepam) 5 mg Route: PO; jg9 09:08 Drug: morphine 4 mg Route: IVP; Site: left antecubital; cb5 09:08 Drug: Zofran (Ondansetron) 4 mg Route: IVP; Site: left antecubital; cb5 11:10 Drug: Ketorolac 30 mg Route: IVP; Site: left antecubital; cb5 11:33 Drug: GI Cocktail without - (Maalox Suspension 30 ml, Lidocaine Liquid 2 % 15 cb5 ml) Route: PO; Disposition Summary: 05/14/21 13:39 Discharge Ordered Location: Home [facility] Condition: Stable [facility] Diagnosis - Upper abdominal pain, unspecified jmm - Pain in thoracic spine [facility] Followup: [facility] - With: Rayshawn Barros MD - When: 2 - 3 days - Reason: Recheck today's complaints, Continuance of care, Re-evaluation by your physician Discharge Instructions: - Discharge Summary Sheet jm - Abdominal Pain, Adult jmm - Thoracic Strain [facility] Forms: - Medication Reconciliation Form [facility] - Thank You Letter m - Antibiotic Education jmm - Prescription Opioid Use [facility] Prescriptions: - Carafate 1 gram Oral Tablet - take 2 tablets by ORAL route every 12 hours take on an empty stomach, beginning jmm on waking and last dose at bedtime; 100 tablet; Refills: 0, Product Selection Permitted - Medrol (Orlin) 4 mg Oral Tablets, Dose Pack - take 1 tablet by ORAL route as directed - follow package instructions; 1 [facility] packet; Refills: 0, Product Selection Permitted Signatures: Dispatcher [employer] Sigifredo Serrano MD MD cha Mickail, Joel, PA PA jmm Lewis, Lynsay, RN RN ll1 Tarsha Nagel RN RN jg9 Aziza Regalado, RN RN cb5 Corrections: (The following items were deleted from the chart) 07:39 07:31 Valium (diazepam) 5 mg IVP once ordered. quinten jg9 14:16 07:26 This is a 30-year-old female with history of hypertension, diabetes mellitus, jmm depression the presents emerged department with complaints of epigastric abdominal pain beginning approximately 2 days ago. Patient states. priya
[2021-05-14 14:33] VITALS: BP 130/80; TEMP 98.4; O2SAT 98
== END 2021-05-14 14:25 | disposition home or self-care (01) ==
LOC: ER 07:17
DX: R10.13 Epigastric pain (principal); M54.6 Pain in thoracic spine; I10 Essential (primary) hypertension; E11.9 Type 2 diabetes mellitus without complications; F32.A Depression, unspecified; Z88.1 Allergy status to other antibiotic agents
CPT/HCPCS: 85025; 80048; 36415; 81025; 80076; 81003; 84484; 83690; 71275; 74177; 96375; 96374; 99284; Q9967; J2405